=== PATIENT | male | born 1970 | race Caucasian/White ===

== ENCOUNTER → 2020-03-31 08:37 | Outpatient (CLI) | payer MEDICAID, SELFPAY ==
[2020-03-31 10:22] LABS: Coronavirus 19 IgG Antibody Negative (Negative); Coronavirus 19 IgM Antibody Negative (Negative)
== END ==
PROVIDERS: Visit Provider Surgery
DX: Z01.89 Encounter for other specified special examinations (principal); Z12.11 Encounter for screening for malignant neoplasm of colon; K62.89 Other specified diseases of anus and rectum; Z87.19 Personal history of other diseases of the digestive system
CPT/HCPCS: 36415; 86328

== ENCOUNTER 2020-04-01 09:49 | Day surgery (SDC) | payer MEDICAID, SELFPAY ==
[2020-04-01] VITALS (11 sets, daily range): BP systolic 122–154; BP diastolic 62–84; PULSE 50–91; RESP 18; TEMP 36.7–37.4; O2SAT 97–100; BMI 21.0
--- NOTE | 2020-04-01 09:36 | P.PN_ITS ---
[facility] Anesthesia Checklist - Structural Data Admitted From: Home Planned Operative Procedure/s: colonoscopy Consent for Planned Operative Procedure(s) Verified: Yes - Airway Assessment C-Spine Mobility Assessed: Yes Dentition: Poor Dentition - Neurological Assessment Level of Consciousness: Awake, Alert, Appropriate - Anesthesia Plan Anesthesia Risk discussed: Yes Anesthesia Plan: Verified ASA Class: III Anesthesia Type: MAC [facility] History I have reviewed the patient's past medical history: Yes Medical History: Denies:: Cancer, Diabetes Mellitus Type 1, Diabetes Mellitus Type 2, Internal Pacemaker, MRSA *Have you ever received a pneumonia vaccine?: No *Have you received a flu vaccine this season?: No Anesthesia experience/problems:: none Other Surgeries: Yes: Colonoscopy. No: Pacemaker Amputation: No Fractures: No - *Social History Last grade of school completed: 9th or 10th Smoking Status: Never smoker Alcohol Intake: never Substance Use Type: marijuana Last Used Substance: unknown *Occupational Status:: employed Housing: apartment Household Members: significant other *Travel in the last 8 weeks: None Family Hx:: No significant family history
--- NOTE | 2020-04-01 10:35 | P.PN_ITS ---
[facility] Anesthesia Checklist - Structural Data Admitted From: Home Planned Operative Procedure/s: colonoscopy Consent for Planned Operative Procedure(s) Verified: Yes - Airway Assessment C-Spine Mobility Assessed: Yes TMJ Mobility Assessed: Yes Dentition: Good Dentition - Neurological Assessment Level of Consciousness: Awake, Alert, Appropriate - Anesthesia Plan Anesthesia Risk discussed: Yes Anesthesia Plan: Verified ASA Class: II Anesthesia Type: MAC [facility] History I have reviewed the patient's past medical history: Yes Medical History: Denies:: Cancer, Diabetes Mellitus Type 1, Diabetes Mellitus Type 2, Internal Pacemaker, MRSA, Seizures *Have you ever received a pneumonia vaccine?: No *Have you received a flu vaccine this season?: No Anesthesia experience/problems:: none Other Surgeries: Yes: Colonoscopy. No: Pacemaker Amputation: No Fractures: No - *Social History Last grade of school completed: 9th or 10th Smoking Status: Never smoker Alcohol Intake: never Substance Use Type: marijuana, painkillers Last Used Substance: unknown *Occupational Status:: other Housing: apartment Household Members: significant other *Travel in the last 8 weeks: None Family Hx:: No significant family history
--- NOTE | 2020-04-01 10:51 | P.PCN_ITS ---
- Procedure: Date: 04/01/20 Patient Date of :: 1970 Procedure Performed:: Colonoscopy with polypectomy Indications:: Perianal pain History of posterior perianal fissure Screening Performing Provider:: Meek Pal MD Referring Provider:: . Sedation:: Monitored anesthesia care Procedure:: After informed consent was obtained the patient was taken to the endoscopy suite. Sedation ensued after the patient was transferred to the left lateral decubitus position. Pulse, blood pressure, and oxygen saturation were monitored throughout the procedure. Digital rectal exam revealed no significant abnormality. The colonoscope was placed in position. The entire colon was evaluated. The colonoscope was carefully removed and the patient was campoverde sferred to recovery in stable condition. Please see findings and specimens below for detail. Findings:: Moderate prep with large volume fluid/feculent material Fairly significant spasticity Minimal thickening along posterior anal margin with no acute fissure or sentinel tag Minimal anal stenosis Polyps (see specimens) Specimens:: Complex lobulated sessile right colon polyp (snare) Polyp at 30 cm Lobulated polyp at 30 cm (snare) Recommendations:: Timing of repeat colonoscopy is pending pathology will likely be between 2-3 years secondary to size/nature of polyps, moderate bowel prep, and spasticity. Complications:: No immediate Estimated blood obtained (mL): 1
--- NOTE | 2020-04-01 13:30 | XR_ITS ---
PROCEDURE: XR ACUTE ABDOMEN SERIES CLINICAL INDICATION: pain s/p colonoscopy COMPARISON: No exams were available for comparison FINDINGS: Frontal view of the chest shows no acute finding. Upright and supine views of the abdomen demonstrates a nonspecific bowel gas pattern. There are gas-filled loops of small and large bowel not uncommon status post colonoscopy. No evidence of free air. No abnormal calcifications. Degenerative changes are present in the lumbar spine. Faint calcification noted along the upper pole of the right kidney suggesting nephrolithiasis. Other findings:None. IMPRESSION: No acute finding. No evidence free air. Possible right nephrolithiasis. Dictated by: Domingo Ybarra MD 04/01/2020 13:47 Domingo Ybarra MD in [place] 04/01/2020 13:47
== END 2020-04-01 14:02 | disposition home or self-care (01) ==
PROVIDERS: Visit Provider Surgery
PROC: 0DJD8ZZ Inspection of Lower Intestinal Tract, Via Natural or Artificial Opening Endoscopic (ICD-10-PCS; CPT 45385; principal; 2020-04-01 10:00)
DX: Z12.11 Encounter for screening for malignant neoplasm of colon (principal); K58.9 Irritable bowel syndrome, unspecified; K63.5 Polyp of colon; K62.4 Stenosis of anus and rectum
CPT/HCPCS: 45385; 74021

== ENCOUNTER 2020-04-06 08:53 | Outpatient (RCR) | payer MEDICAID, SELFPAY | END 2020-05-06 15:39 | disposition home or self-care (01) | LOC: PT.CARL 08:53 | PROVIDERS: Visit Provider Nurse Practitioner Family | DX: M25.512 Pain in left shoulder (principal); M50.10 Cervical disc disorder with radiculopathy, unspecified cervical region | CPT/HCPCS: 97163 ==

== ENCOUNTER → 2020-04-09 15:32 | Outpatient (CLI) | payer MEDICAID, SELFPAY ==
--- NOTE | 2020-04-09 | MR_ITS ---
PROCEDURE: MR CERVICAL SPINE WO CON CLINICAL INDICATION: NECK PAIN PT C/O CHRONIC NECK AND LEFT ARM PAIN. HAS HX OF TRAUMA YEARS AGO. COMPARISON: No exams were available for comparison TECHNIQUE: Standard multiplanar multiecho sequences are performed without contrast. 3-D MIP and myelographic images are also rendered and reviewed FINDINGS: There is normal alignment. The craniocervical junction has an unremarkable appearance. C2-C3: Unremarkable. C3-C4: There is a small right foraminal disc osteophyte complex causing mild right-sided foraminal narrowing. C4-C5: Unremarkable. C5-C6: Unremarkable. C6-C7: Mild degenerative disc disease with minimal bulging disc. There is mild left-sided uncovertebral hypertrophy with minimal disc osteophyte complex causing mild left-sided foraminal narrowing. No canal stenosis or extruded herniated disc. IMPRESSION: Mild degenerative changes with small right foraminal disc osteophyte complex at C3-C4 and on the left at C6-C7 with mild foraminal narrowing at these levels. No extruded herniated disc or canal stenosis Dictated by: Domingo Ybarra MD 04/10/2020 11:26 Domingo Ybarra MD in [place] 04/10/2020 11:26
== END ==
PROVIDERS: Visit Provider Nurse Practitioner Family
DX: M25.512 Pain in left shoulder (principal); M50.10 Cervical disc disorder with radiculopathy, unspecified cervical region
CPT/HCPCS: 72141; 76376

== ENCOUNTER 2021-05-13 10:43 | Emergency (ER) | payer MEDICAID, SELFPAY ==
--- NOTE | 2021-05-13 11:40 | HMH.EDUTC ---
[facility] [place] Disposition Clinical Impression: Abdominal cramping, Nausea, Weight loss Disposition: Home, Self-Care Condition on Discharge: Good Instructions: DI for Nausea -- Adult, DI for Weight Loss Additional Instructions: Drink plenty of fluids. Take tylenol or ibuprofen for pain or fever. Take the medications as directed. Follow up with your regular doctor. GO TO THE ER FOR ANY WORSENING SYMPTOMS The promethazine will make you drowsy, so don't drive or operate heavy machinery after taking it. You need to get a primary care physician. We will give you a list of providers that are taking new patients. Please select one and call and get an appointment. Prescriptions: Promethazine HCl [Phenergan 25mg tab] 25 mg PO Q6H PRN #20 tab PRN Reason: Nausea And Vomiting Transmission Status: Received by [facility] Referrals: Provider,Referral, [Primary Care Provider] - Time of Disposition: 12:03 Medical Decision Making - Medical Records Medical records reviewed: No: I reviewed the patient's medical records. - Otilio Inquiry Pt receiving controlled substance: No Vital Signs: 05/13/21 11:50 05/13/21 12:22 Temperature 98.4 F 98.4 F Temperature Source Oral Oral Pulse Rate 92 H Pulse Rate [Left Radial] 92 H Respiratory Rate 18 18 Blood Pressure 124/86 Blood Pressure [Right Arm] 124/86 Blood Pressure Mean [Right Arm] 98 Blood Pressure Source [Right Arm] Automatic Cuff Blood Pressure Position [Right Arm] Sitting 02 Sat by Pulse Oximetry 100 Oxygen Delivery Method Room Air Room Air - Lab Data Lab results reviewed: Yes: I reviewed the patient's lab results. [facility] [place] HPI - General Stated complaint: body aches Time Seen by Provider: 05/13/21 11:40 - History of Present Illness Provider Complaint: He states that he has a lot of gi complaints. He has issues with gas pain and bloating. He has had this issue for over a year now. He had a colonoscopy done last year by Dr. Pal here. He states that the colonoscopy showed some polyps, but nothing else. He also has a history of weight loss. He states that over the past 1 year he has lost about 25 pounds. He states that he never has an appetite. He also has frequent issues with nausea. He denies any vomiting or diarrhea. - Related Data Home Medications Medication Instructions Recorded Confirmed Meloxicam 15 mg PO BID 03/30/20 04/07/20 Previous Rx's Medication Instructions Recorded Promethazine HCl [Phenergan 25mg 25 mg PO Q6H PRN #20 tab 05/13/21 tab] Allergies Allergy/AdvReac Type Severity Reaction Status Date / Time No Known Allergies Allergy Verified 04/07/20 13:55 [facility] History - Hepatitis A Screen Attestation statement:: This patient has been screened for Hepatitis A risk factors. I have reviewed the patient's past medical history: Yes Medical History: Denies:: Cancer, Diabetes Mellitus Type 1, Diabetes Mellitus Type 2, Internal Pacemaker, MRSA, Seizures Other Surgeries: Yes: Colonoscopy. No: Pacemaker Amputation: No Fractures: No Comment: Fissure - Social History Smoking Status: Never smoker Alcohol Intake: never Substance Use Type: marijuana, painkillers Occupational Status: other Housing: apartment Household Members: significant other Family Hx:: No significant family history ROS Obtained: Yes All systems reviewed & no additional complaints - Constitutional Constitutional: Denies chills, Denies fever(s), Reports poor appetite, Reports malaise - ENT Ears, Nose, Mouth, and Throat: Denies dizziness, Denies otalgia, Denies sore throat - Cardiovascular Cardiovascular: Denies chest pain - Respiratory Respiratory: Denies chest congestion, Denies cough, Denies dyspnea, Denies stridor, Denies wheezing - Gastrointestinal Gastrointestingal: Reports: nausea. Denies: abdominal pain, diarrhea, vomiting - Genitourinary Male Genitourinary: Denies difficulty urinating, Denies flan
[2021-05-13 11:50] VITALS: BP 124/86; PULSE 92; RESP 18; TEMP 36.9; O2SAT 100; BMI 21.2
[2021-05-13 12:22] VITALS: BP 124/86; PULSE 92; RESP 18; TEMP 36.9; O2SAT 100
== END 2021-05-13 12:23 | disposition home or self-care (01) ==
LOC: ER 10:56 → UTC 10:57
PROVIDERS: Emergency Provider Nurse Practitioner Family
DX: R10.30 Lower abdominal pain, unspecified (principal)
CPT/HCPCS: 99202; G0463

== ENCOUNTER → 2021-05-24 19:00 | Outpatient (CLI) | payer MEDICAID, SELFPAY ==
[2021-05-24 19:26] LABS: Basophils # 0.1 K/mm3 (0-0.2); Basophils % 0.8 % (0.1-2.0); Eosinophils # 0.1 K/mm3 (0.0-0.4); Eosinophils % 1.6 % (0.1-12.0); Hematocrit 39.2 % (42.0-52.0); Hemoglobin 13.5 g/dL (14.1-18.0); Lymphocytes # 2.4 K/mm3 (0.7-4.5); Lymphocytes % 37.4 % (10-50); Mean Corpuscular HGB Conc 34.3 g/dL (31.8-35.4); Mean Corpuscular Hemoglobin 30.7 pg (27.0-31.2); Mean Corpuscular Volume 89.5 fl (80-94); Monocytes # 0.4 K/mm3 (0.1-1.0); Monocytes % 6.7 % (1.7-9.3); Neutrophils # 3.5 K/mm3 (1.8-7.8); Neutrophils % 53.5 % (37.0-80.0); Platelet Count 312 K/mm3 (142-424); Red Blood Count 4.38 M/mm3 (4.60-6.20); Red Cell Distribution Width 12.4 % (11.5-17.5); White Blood Count 6.5 K/mm3 (4.8-10.8)
[2021-05-24 20:42] LABS: Alanine Aminotransferase 11 U/L (12-78); Albumin Level 4.5 g/dl (3.5-5.0); Albumin/Globulin Ratio 1.7 (1.1-1.8); Alkaline Phosphatase 69 U/L (38-126); Amylase 54 U/L (30-110); Anion Gap 12.1 mEq/L (5-15); Aspartate Amino Transferase 32 U/L (17-59); Bilirubin,Total 0.5 mg/dl (0.2-1.3); Blood Urea Nitrogen 14 mg/dl (9-20); Calcium 9.5 mg/dl (8.4-10.2); Carbon Dioxide 29 mmol/L (22.0-30.0); Chloride 100 mmol/L (98-107); Cholesterol 138 mg/dl (140-200); Estimated Glomerular Filt Rate 78 ml/min (>60); GFR (African American) 95 ML/MIN (>60); Globulin 2.6 g/dL (1.3-3.2); Glucose 76 mg/dl (74-100); HDL Cholesterol 46 mg/dl (40-60); Lipase 44 U/L (23-300); Potassium 4.1 mmoL/L (3.5-5.1); Sodium 137 mmol/L (136-145); Total Protein,Serum 7.1 g/dl (6.3-8.2); Triglycerides 64 mg/dl (30-150); VLDL Cholesterol 13 mg/dL (0-40)
[2021-05-24 20:53] LABS: Direct LDL Cholesterol 79.37 mg/dL (100-129)
[2021-05-24 21:10] LABS: Prostate Specific Ag Screen 0.9 ng/ml (0.0-4.0)
== END ==
PROVIDERS: Visit Provider Family Medicine
DX: Z00.00 Encounter for general adult medical examination without abnormal findings (principal)
CPT/HCPCS: 80053; 80061; 82150; 83690; 85025; G0103

== ENCOUNTER → 2021-06-07 10:06 | Outpatient (CLI) | payer MEDICAID, SELFPAY ==
--- NOTE | 2021-06-07 10:09 | FL_ITS ---
PROCEDURE: FL UPPER GI SMALL BOWEL CLINICAL INDICATION: dysphagia, bloating COMPARISON: No exams were available for comparison FINDINGS: Fluoroscopy time: 3.2 minutes The stomach and duodenal bulb have an unremarkable appearance. No ulcer or mass is evident. Esophagus has an unremarkable appearance. No hernia evident. No evidence of small-bowel obstruction. No obvious mass. No mucosal of abnormalities apparent. There was fairly rapid transit of contrast through the small bowel to the large bowel. IMPRESSION: Fairly rapid transit of contrast through the small bowel otherwise negative upper GI and small-bowel follow-through Dictated by: Domingo Ybarra MD 06/07/2021 17:14 Domingo Ybarra MD in [place] 06/07/2021 17:14
== END ==
PROVIDERS: PCP Family Medicine; Visit Provider Surgery
DX: R13.10 Dysphagia, unspecified (principal); R11.0 Nausea
CPT/HCPCS: 74246; 74248

== ENCOUNTER → 2021-06-08 08:53 | Outpatient (CLI) | payer MEDICAID, SELFPAY ==
--- NOTE | 2021-06-08 08:55 | FL_ITS ---
PROCEDURE: FL BARIUM SWALLOW CLINICAL INDICATION: dysphagia, bloating COMPARISON: No exams were available for comparison TECHNIQUE: In the upright position the patient was observed to swallow barium in both the AP and lateral view. The cervical esophagus was examined under fluoroscopy with images obtained. The patient was then placed prone in the right anterior oblique position and was observed to swallow barium with Valsalva technique . FLUOROSCOPY TIME: 48 seconds FINDINGS: There was no evidence of aspiration. There was normal peristalsis. No filling defects or mucosal abnormalities. No masses or strictures. No hiatal hernia IMPRESSION: Negative barium swallow. Dictated by: Domingo Ybarra MD 06/08/2021 13:31 Domingo Ybarra MD in [facility] 06/08/2021 13:31
== END ==
PROVIDERS: PCP Family Medicine; Visit Provider Surgery
DX: R13.10 Dysphagia, unspecified (principal); R11.0 Nausea
CPT/HCPCS: 74220

== ENCOUNTER → 2021-06-13 14:40 | Outpatient (CLI) | payer MEDICAID, SELFPAY ==
--- NOTE | 2021-06-13 14:42 | CT_ITS ---
PROCEDURE: CT ABDOMEN PELVIS WO CON CLINICAL INDICATION: lower abdomin pain with weight loss COMPARISON: No exams were available for comparison TECHNIQUE: Axial images obtained with sagittal and coronal reformats. All CT scans at the facility use one or more dose reduction, viz: automated exposure control, ma/kV adjustment per patient size (including targeted exams where dose is matched to indication, i.e. head), or iterative reconstruction technique. FINDINGS: LOWER THORAX: No acute finding ABDOMEN & PELVIS: The liver, gallbladder, spleen, adrenal glands, pancreas, and kidneys have an unremarkable appearance. No renal or ureteral calculi. No hydronephrosis. Bowel gas pattern is nonspecific. No evidence of appendicitis. Evidence of diverticulitis. Nondistended fluid-filled small bowel loops are present in the pelvis. No intestinal obstruction or free air. Multiple unopacified bowel loops in the abdomen or pelvis which could obscure or mimic pathology. If symptoms persist, consider repeat exam with IV and oral contrast.. Small hyperdensity noted in the cecal region and may be due to ingested contents. Degenerative changes are present in the lumbar spine with severe degenerative disc disease at L4-5 and moderate to severe degenerative disc disease at L2-L3 and L3-L4. Sclerotic focus is present in the L5 vertebral body. Degenerative changes lower thoracic spine. Small sclerotic focus of the right femoral head. The sclerotic foci may be due to bone islands. IMPRESSION: No definite acute finding. Nondistended fluid-filled loops of small bowel are present which are nonspecific Multiple unopacified bowel loops in the abdomen or pelvis which could obscure or mimic pathology. If symptoms persist, consider repeat exam with IV and oral contrast. Dictated by: Domingo Ybarra MD 06/14/2021 15:10 Domingo Ybarra MD in [facility] 06/14/2021 15:10
== END ==
PROVIDERS: PCP Family Medicine; Visit Provider Family Medicine
DX: R10.30 Lower abdominal pain, unspecified (principal); R63.4 Abnormal weight loss
CPT/HCPCS: 74176

== ENCOUNTER → 2021-09-22 14:37 | Outpatient (CLI) | payer MEDICAID, SELFPAY ==
--- NOTE | 2021-09-22 14:42 | MR_ITS ---
FINAL REPORT CLINICAL HISTORY: neck pain. left shoulder pain and neck pain x several years no trauma COMPARISON: 04/09/2020 FINDINGS: Multiplanar MR imaging of the cervical spine was performed without contrast. On the sagittal T2-weighted images, disc degeneration is seen at multiple levels. There is no evidence of fracture. The vertebral alignment is normal. The cervical spinal cord has an unremarkable appearance without evidence of mass, edema or syrinx. No significant canal stenosis is identified. The cervicomedullary junction is normal. C2-3: There is no significant canal stenosis or neural foraminal narrowing. C3-4: Uncovertebral osteophytes are present with severe right and moderate left neural foraminal narrowing. Findings are stable since previous. C4-5: There is no significant canal stenosis or neural foraminal narrowing. C5-6: An annular bulge is present with mild right and moderate left neural foraminal narrowing. C6-7: An annular bulge and uncovertebral osteophytes are present. There is severe bilateral neural foraminal narrowing. Neural foraminal narrowing has progressed on the right. C7-T1: There is no significant canal stenosis or neural foraminal narrowing. IMPRESSION: Multilevel degenerative disc disease and spondylosis. Reviewed, Interpreted and Dictated by Dez Rodriguez III, MD Transcribed by Niki Hinton Authenticated by Dez Rodriguez III, MD on 09/23/2021 08:29:38 AM [facility]
== END ==
PROVIDERS: PCP Emergency Medicine; Visit Provider Emergency Medicine
DX: M54.2 Cervicalgia (principal); M54.16 Radiculopathy, lumbar region
CPT/HCPCS: 72141; 76376

== ENCOUNTER → 2021-09-26 15:47 | Outpatient (CLI) | payer MEDICAID, SELFPAY ==
[2021-09-26 13:54] LABS: Barbiturates Screen,Urine Negative ng/ml (<200)
[2021-09-26 13:55] LABS: Amphetamine/Metha Screen,Urine Negative ng/ml (<1000)
[2021-09-26 13:56] LABS: Benzodiazepines Screen,Urine Negative ng/ml (<200)
[2021-09-26 13:57] LABS: Cannabinoid Screen,Urine Positive ng/ml (<50); Cocaine Screen,Urine Negative ng/ml (<300)
[2021-09-26 13:58] LABS: Methadone Screen,Urine Negative ng/ml (<300); Opiate Screen,Urine Positive ng/ml (<300)
[2021-09-26 13:59] LABS: Phencyclidine Screen,Urine Negative ng/ml (<25)
== END ==
PROVIDERS: Visit Provider Emergency Medicine
DX: M54.9 Dorsalgia, unspecified (principal)
CPT/HCPCS: 80305

== ENCOUNTER 2021-10-01 13:44 | Emergency (ER) | payer MEDICAID, SELFPAY ==
[2021-10-01 13:44] VITALS: BP 121/72; PULSE 74; RESP 16; TEMP 37.2; O2SAT 98; BMI 23.1
[2021-10-01 14:15] VITALS: BP 131/69; PULSE 75; RESP 20; O2SAT 96
--- NOTE | 2021-10-01 14:15 | HMH.EDSKAF ---
ED Disposition Clinical Impression: Insect bite Qualifiers: Encounter type: initial encounter Site of insect bite: other part of neck Qualified Code(s): S10.86XA - Insect bite of other specified part of neck, initial encounter; W57.XXXA - Bitten or stung by nonvenomous insect and other nonvenomous arthropods, initial encounter Disposition: Home, Self-Care Condition on Discharge: Fair Instructions: How to Care for an Insect Bite or Sting Additional Instructions: Turn to the emergency department if you worsen in any way. You may take [id number] ibuprofen and/or Tylenol for the pain. Referrals: Mark Anthony Reyes MD [Primary Care Provider] - - Critical Care Critical Care Time: No Attestation: On 10/01/21, the high probability of a clinically significant, sudden or life threatening deterioration of the following system(s) required my full and direct attention, intervention and personal management. The time I documented below is in addition to time spent performing reported procedures but includes the following listed in this critical care notation. Medical Decision Making - Medical Records Medical records reviewed: Yes: I reviewed the patient's medical records. - Otilio Inquiry Pt receiving controlled substance: No Vital Signs: 10/01/21 13:44 Temperature 98.9 F Temperature Source Oral Pulse Rate [Right] 74 Respiratory Rate 16 Blood Pressure [Right Arm] 121/72 Blood Pressure Mean [Right Arm] 88 Blood Pressure Source [Right Arm] Automatic Cuff Blood Pressure Position [Right Arm] Sitting 02 Sat by Pulse Oximetry 98 Oxygen Delivery Method Room Air Medical Decision Narrative: Patient presents to the emergency department complaining of redness and tenderness at the base of his left neck. This occurred few days ago. He states that he does improve. On examination there is no fluctuance. This is not indicative of an abscess. The fact that the symptoms are improving makes me believe that this may have been an arthropod sting or bite. The patient will be discharged without any further work-up at this time. I advised the patient to keep track of the size of the induration and redness. I also advised him to return to the emergency department if the symptoms start worsening. Skin/Abscess/FB HPI - General Chief complaint: Skin/Abscess/Foreign Body Stated complaint: knot on L side of neck Time Seen by Provider: 10/01/21 14:15 Mode of Arrival: Ambulatory Limitations: No Limitations Description of Symptoms (Recalled from ER Triage Doc. by RN): pt advises on Sunday the area on his left shoulder around the base of his neck became tender and swollen. Pt has rachele, hard area on the left shoulder at the base of the neck. Unknown if he was bit by something or what is going on with it. - History of Present Illness HPI narrative: The patient presents to the emergency department complaining of a red, painful, indurated area at the base of his left neck. Dates that this started a day and a half ago when he was putting wood in his stove. States that the size of the swelling has decreased since yesterday. He denies any fevers. - Related Data Previous Rx's Medication Instructions Recorded gabapentin 100 mg capsule 100 mg PO TID #90 cap 09/26/21 oxycodone-acetaminophen 7.5 mg-325 1 tab PO QID #120 tab 09/26/21 mg tablet Allergies Allergy/AdvReac Type Severity Reaction Status Date / Time No Known Allergies Allergy Verified 09/26/21 09:52 [facility] History - Hepatitis A Screen Drug use history?: No High risk sexual behaviors?: No History of sexually transmitted infection?: No Currently employed?: No Childcare worker?: No Do you have indoor plumbing?: Yes Do you have electricity?: Yes Attestation statement:: This patient has been screened for Hepatitis A risk factors. Medical History: Reports:: Anxiety Denies:: Cancer, Diabetes Mellitus Type 1, Diabetes Mellitus Type 2, Internal Pacemaker, M
[2021-10-01 14:41] VITALS: BP 124/89; PULSE 70; RESP 16; TEMP 37.2; O2SAT 98
== END 2021-10-01 14:43 | disposition home or self-care (01) ==
PROVIDERS: Emergency Provider Emergency Medicine; PCP Emergency Medicine
DX: S10.86XA Insect bite of other specified part of neck, initial encounter (principal); F41.9 Anxiety disorder, unspecified; Z79.899 Other long term (current) drug therapy; W57.XXXA Bitten or stung by nonvenomous insect and other nonvenomous arthropods, initial encounter
CPT/HCPCS: 99282

== ENCOUNTER 2021-10-02 15:58 | Emergency (ER) | payer MEDICAID, SELFPAY ==
[2021-10-02 16:07] VITALS: PULSE 87; RESP 16; O2SAT 98; BMI 21.1
--- NOTE | 2021-10-02 16:34 | HMH.EDUTC ---
[facility] [place] Disposition Clinical Impression: Cutaneous abscess of back excluding buttocks Disposition: Home, Self-Care Condition on Discharge: Good Instructions: Boil Additional Instructions: Keep the wounds clean and dry. Follow up with your regular doctor. Take the antibiotics as directed and apply the topical antibiotics as directed. GO TO THE ER FOR ANY WORSENING SYMPTOMS Try to keep the packing in place when you have to change the dressing. If it falls out, it is ok. You need to be rechecked in 3 days to remove the packing and to reassess the wound. It would be good for you to go see Dr. Reyes tomorrow as you plan too. Referrals: Mark Anthony Reyes MD [Primary Care Provider] - Time of Disposition: 18:30 Medical Decision Making - Medical Records Medical records reviewed: No: I reviewed the patient's medical records. - Otilio Inquiry Pt receiving controlled substance: No Vital Signs: 10/02/21 16:07 10/02/21 18:53 Temperature 98.8 F Pulse Rate 93 H Pulse Rate [Right] 87 Respiratory Rate 16 16 Blood Pressure 136/99 H 02 Sat by Pulse Oximetry 98 Oxygen Delivery Method Room Air Orders (Tests/Meds): ED MEDICATIONS Discontinued Medications Generic Name Dose Route Start Last Admin Trade Name Freq PRN Reason Stop Dose Admin Ceftriaxone Sodium 1 gm 10/02/21 16:35 10/02/21 16:46 Ceftriaxone 1gm Vial IM 10/02/21 16:36 1 gm ONCE ONE Administration Ketorolac Tromethamine 60 mg 10/02/21 16:35 10/02/21 16:46 Ketorolac 60mg/2ml Vial IM 10/02/21 16:36 60 mg ONCE ONE Administration Ketorolac Tromethamine 60 mg 10/02/21 16:45 10/02/21 17:15 Ketorolac 60mg/2ml Vial IM 10/02/21 16:46 Not Given ONCE ONE Lidocaine HCl 0 ml 10/02/21 16:35 10/02/21 16:46 Lidocaine 1% 5ml Pf Vial IM 10/02/21 16:36 2 ml ONCE ONE Administration ORDERS Category Date Time Status Wound Culture and Gram Stain Stat Micro 10/02/21 19:30 Results [facility] [place] HPI - General Stated complaint: painful spot on neck Time Seen by Provider: 10/02/21 16:35 Mode of Arrival: Ambulatory Source of Information: Patient Limitations: No Limitations Description of Symptoms (Recalled from Triage Doc. by RN): pt was seen yesterday for a lump on his left shoulder that ER MD did not feel needed to be opened. Pt returned today c/o increased pain. Area appears to be slightly redder, but is still hard to the touch. No obvious changes from yesterday - History of Present Illness Provider Complaint: He states that he has an infected place on his left upper back. - Related Data Home Medications Medication Instructions Recorded Confirmed Gabapentin [Gabapentin 100mg Cap] 100 mg PO TID 10/04/21 10/04/21 Mupirocin [Bactroban 2% Ointment 1 applicatio TP TID 10/04/21 10/04/21 22gm tube] Oxycodone HCl/Acetaminophen 1 tab PO QID 10/04/21 10/04/21 [Oxycodone-Acetaminophn 7.5-325] Sulfamethoxazole/Trimethoprim 1 each PO BID 10/04/21 10/04/21 [Bactrim DS tablet] cephALEXin [cephALEXin 500mg 500 mg PO Q6H 10/04/21 10/04/21 capsule] Allergies Allergy/AdvReac Type Severity Reaction Status Date / Time No Known Allergies Allergy Verified 10/04/21 13:19 [facility] History - Hepatitis A Screen Attestation statement:: This patient has been screened for Hepatitis A risk factors. I have reviewed the patient's past medical history: Yes Medical History: Reports:: Anxiety Denies:: Cancer, Diabetes Mellitus Type 1, Diabetes Mellitus Type 2, Internal Pacemaker, MRSA, Seizures Other Surgeries: Yes: Colonoscopy, Other (pollops removed ). No: Pacemaker Amputation: No Fractures: No Comment: Fissure - Social History Smoking Status: Never smoker Alcohol Intake: never Substance Use Type: marijuana, painkillers Occupational Status: other Housing: apartment Household Members: significant other - Psychiatric History Pschychiatric History:: Reports:: Anxiety Family Hx:: No signif
[2021-10-02 18:53] VITALS: BP 136/99; PULSE 93; RESP 16; TEMP 37.1
== END 2021-10-02 18:58 | disposition home or self-care (01) ==
PROVIDERS: Emergency Provider Nurse Practitioner Family; PCP Emergency Medicine
DX: L02.212 Cutaneous abscess of back [any part, except buttock and flank] (principal); L02.12 Furuncle of neck; R22.32 Localized swelling, mass and lump, left upper limb; F41.9 Anxiety disorder, unspecified
CPT/HCPCS: 10060; 87070; 87077; 87186; 87205; 99213; G0463; J0696

== ENCOUNTER → 2021-10-04 14:02 | Outpatient (POV) | payer MEDICAID, SELFPAY ==
--- NOTE | 2021-10-04 14:26 | P.CONS_ITS ---
HPI - Data of Consult Patient: new to practice Consult date: 10/04/21 Requesting Physician: Alexander Mccarthy CRNA - Consult Narrative Reason for consult: Neck pain with cervical radiculopathy. History of present illness: Mr. Jin is a 51 year old male CC: Alexander Mccarthy CRNA [facility] History I have reviewed the patient's past medical history: Yes Medical History: Reports:: Anxiety Denies:: Cancer, Diabetes Mellitus Type 1, Diabetes Mellitus Type 2, Internal Pacemaker, MRSA, Seizures *Have you ever received a pneumonia vaccine?: No *Have you received a flu vaccine this season?: No Other Surgeries: Yes: Colonoscopy, Other (pollops removed ). No: Pacemaker Amputation: No Fractures: No - *Social History Smoking Status: Never smoker Alcohol Intake: never Substance Use Type: marijuana, painkillers *Occupational Status:: other Housing: apartment Household Members: significant other - Psychiatric History Pschychiatric History:: Reports:: Anxiety Family Hx:: No significant family history Review of Systems - Review of Systems Review of systems:: pertinent systems reviewed and negative unless documented below Meds Home Medications Medication Instructions Recorded Confirmed Type Gabapentin [Gabapentin 100mg Cap] 100 mg PO TID 10/04/21 10/12/21 History Mupirocin [Bactroban 2% Ointment 1 applicatio TP TID 10/04/21 10/12/21 History 22gm tube] Oxycodone HCl/Acetaminophen 1 tab PO QID 10/04/21 10/12/21 History [Oxycodone-Acetaminophn 7.5-325] Sulfamethoxazole/Trimethoprim 1 each PO BID 10/04/21 10/12/21 History [Bactrim DS tablet] cephALEXin [cephALEXin 500mg 500 mg PO Q6H 10/04/21 10/12/21 History capsule] Allergies Allergy/AdvReac Type Severity Reaction Status Date / Time No Known Allergies Allergy Verified 10/12/21 13:25
[2021-10-04 14:29] VITALS: BP 130/80; PULSE 78; RESP 18; TEMP 37.1; O2SAT 95; BMI 21.8
--- NOTE | 2021-10-04 14:30 | HMH.PMCON ---
Assessment and Plan (1) Degenerative joint disease of cervical spine Status: Chronic Qualifiers: Spinal osteoarthritis complication: with radiculopathy Qualified Code(s): M47.22 - Other spondylosis with radiculopathy, cervical region Category: Medical Code(s): M47.812 - Spondylosis without myelopathy or radiculopathy, cervical region (2) Cervical radiculopathy due to degenerative joint disease of spine Status: Acute Category: Medical Code(s): M47.22 - Other spondylosis with radiculopathy, cervical region - Assessment and plan all Dx Assessment and Plan for all problems:: Chrystal in detail with the patient regarding his cervical neck pain as well as cervical radiculopathy symptoms into the bilateral arms. Left greater than right. Reviewed patient's MRI of the cervical spine with him in detail. Most likely bulge at C6-7 is given in the pain in his neck as well as shoulder radicular symptoms. Discussed cervical epidural steroid injection in detail with the patient. However, patient has a open cyst that is being treated by his primary care doctor at this time. It was lanced on Sunday last week. Continues to drain. He is currently on antibiotic therapy. He will follow-up in 1 month. If the cyst and antibiotics are finished we will proceed with cervical epidural steroid injection. HPI - Data of Consult Patient: new to practice Consult date: 10/04/21 Requesting Physician: Alexander Mccarthy CRNA - Consult Narrative Reason for consult: Neck pain with cervical radiculopathy symptoms. History of present illness: Mr. Jin is a 51 year old male CC: Alexander Mccarthy CRNA [facility] History I have reviewed the patient's past medical history: Yes Medical History: Reports:: Anxiety Denies:: Cancer, Diabetes Mellitus Type 1, Diabetes Mellitus Type 2, Internal Pacemaker, MRSA, Seizures *Have you ever received a pneumonia vaccine?: No *Have you received a flu vaccine this season?: No Other Surgeries: Yes: Colonoscopy, Other (pollops removed ). No: Pacemaker Amputation: No Fractures: No - *Social History Smoking Status: Never smoker Alcohol Intake: never Substance Use Type: marijuana, painkillers *Occupational Status:: other Housing: apartment Household Members: significant other *Travel in the last 8 weeks: None - Psychiatric History Pschychiatric History:: Reports:: Anxiety Family Hx:: No significant family history Review of Systems - Review of Systems Review of systems:: pertinent systems reviewed and negative unless documented below Meds Home Medications Medication Instructions Recorded Confirmed Type Gabapentin [Gabapentin 100mg Cap] 100 mg PO TID 10/04/21 10/04/21 History Mupirocin [Bactroban 2% Ointment 1 applicatio TP TID 10/04/21 10/04/21 History 22gm tube] Oxycodone HCl/Acetaminophen 1 tab PO QID 10/04/21 10/04/21 History [Oxycodone-Acetaminophn 7.5-325] Sulfamethoxazole/Trimethoprim 1 each PO BID 10/04/21 10/04/21 History [Bactrim DS tablet] cephALEXin [cephALEXin 500mg 500 mg PO Q6H 10/04/21 10/04/21 History capsule] Allergies Allergy/AdvReac Type Severity Reaction Status Date / Time No Known Allergies Allergy Verified 10/04/21 13:19 Opioid Risk Tool - Opioid Risk Tool-Male Family hx alcohol abuse: N Family hx illegal drugs: N Family hx rx drug abuse: N Personal hx alcohol abuse: N Personal hx illegal drugs: N Personal hx rx drug abuse: N Age: 45+ Hx of sexual abuse: N Mental health issues-ADD,OCD,Bipolar, etc: N Hx of depression: N Male Risk Score: 0
== END ==
PROVIDERS: Visit Provider Nurse Anesthetist, Certified Registered
DX: M47.22 Other spondylosis with radiculopathy, cervical region (principal)
CPT/HCPCS: 99202; G0463

== ENCOUNTER → 2021-10-05 14:09 | Outpatient (CLI) | payer MEDICAID, SELFPAY ==
[2021-10-05 14:15] LABS: MANUAL DIFFERENTIAL MANUAL DIFFERENTIAL (MANUAL DIFF)
[2021-10-05 14:26] LABS: Basophils # 0.1 K/mm3 (0-0.2); Basophils % 1.9 % (0.1-2.0); Eosinophils # 0.2 K/mm3 (0.0-0.4); Eosinophils % 3.1 % (0.1-12.0); Hematocrit 39.3 % (42.0-52.0); Hemoglobin 12.7 g/dL (14.1-18.0); Lymphocytes # 2.7 K/mm3 (0.7-4.5); Lymphocytes % 41.8 % (10-50); Mean Corpuscular HGB Conc 32.3 g/dL (31.8-35.4); Mean Corpuscular Hemoglobin 30.5 pg (27.0-31.2); Mean Corpuscular Volume 94.4 fl (80-94); Monocytes # 0.4 K/mm3 (0.1-1.0); Monocytes % 6.7 % (1.7-9.3); Neutrophils % 46.5 % (37.0-80.0); Platelet Count 318 K/mm3 (142-424); Red Blood Count 4.16 M/mm3 (4.60-6.20); Red Cell Distribution Width 12.4 % (11.5-17.5); White Blood Count 6.5 K/mm3 (4.8-10.8)
[2021-10-05 15:36] LABS: Chloride 104 mmol/L (98-107)
[2021-10-05 15:37] LABS: Potassium 4.3 mmoL/L (3.5-5.1); Sodium 139 mmol/L (136-145)
[2021-10-05 15:40] LABS: Anion Gap 10.3 mEq/L (5-15); Blood Urea Nitrogen 15 mg/dl (9-20); Calcium 8.2 mg/dl (8.4-10.2); Carbon Dioxide 29 mmol/L (22.0-30.0); Estimated Glomerular Filt Rate 70 ml/min (>60); GFR (African American) 85 ML/MIN (>60); Glucose 74 mg/dl (74-100)
[2021-10-05 17:41] LABS: Eosinophils % 1 % (0-3); Lymphocytes % 38 % (10-50); Monocytes % 5 % (2-9); Neutrophils % 56 % (42-76); RBC Morphology Normal; Total Cells Counted 100
[2021-10-05 17:42] LABS: Platelet Estimate Normal
== END ==
PROVIDERS: Visit Provider Surgery
DX: Z01.812 Encounter for preprocedural laboratory examination (principal); Z11.52 Encounter for screening for COVID-19; L02.212 Cutaneous abscess of back [any part, except buttock and flank]
CPT/HCPCS: 36415; 80048; 85007; 85014; 85018; 85048; 85049; C9803; U0003; U0005

== ENCOUNTER 2021-10-06 06:03 | Day surgery (SDC) | payer MEDICAID, SELFPAY ==
[2021-10-06] VITALS (10 sets, daily range): BP systolic 100–140; BP diastolic 69–94; PULSE 69–85; RESP 16–18; TEMP 36.4–36.7; O2SAT 98–100; BMI 21.8
--- NOTE | 2021-10-06 06:35 | ECG_ITS ---
APPROVED REPORT Exam: Resting ECG HR:70 bpm ECG Measurements Heart Rate 70 AXES MS 162 P 67 QRSd 86 QRS 75 QT 377 T 63 QTc 398 Conclusion SINUS RHYTHM NORMAL ECG UNCONFIRMED REPORT Electronically signed by : Jomar Zelaya MD 10/06/2021 17:41:19
--- NOTE | 2021-10-06 06:54 | P.PN_ITS ---
[facility] Anesthesia Checklist - Patient Identification Patient Identification: Arm Band - Structural Data Admitted From: Home Planned Operative Procedure/s: I & D back abscess Consent for Planned Operative Procedure(s) Verified: Yes - NPO Status Verified Time NPO: 00:00 - Additional verifications Anesthesia Reactions: No Hx Blood Transfusions: No Blood Transfusion Reaction: No - Airway Assessment C-Spine Mobility Assessed: Yes TMJ Mobility Assessed: Yes Dentition: Good Dentition - Neurological Assessment Level of Consciousness: Awake Hx Seizures: No Numbness or tingling in extremities: Yes - Anesthesia Plan Anesthesia Risk discussed: Yes Anesthesia Plan: Verified ASA Class: II Anesthesia Type: General [facility] History I have reviewed the patient's past medical history: Yes Medical History: Reports:: Anxiety Denies:: Cancer, Diabetes Mellitus Type 1, Diabetes Mellitus Type 2, Internal Pacemaker, MRSA, Seizures *Have you ever received a pneumonia vaccine?: No *Have you received a flu vaccine this season?: No Other Medical History: Reports: Other (Chronic pain). Denies: Blood Transfusion Reaction Anesthesia experience/problems:: None Other Surgeries: Yes: Colonoscopy, Other (pollops removed ). No: Pacemaker Amputation: No Fractures: No - *Social History Last grade of school completed: High school graduate Smoking Status: Never smoker Alcohol Intake: former Substance Use Type: marijuana Last Used Substance: days (ago) *Occupational Status:: unemployed Housing: house Household Members: significant other *Travel in the last 8 weeks: None - Psychiatric History Pschychiatric History:: Reports:: Anxiety Family Hx:: Diabetes
--- NOTE | 2021-10-06 07:14 | HMH.OPNOTE ---
Date of procedure: 10/06/21 Pre-op Diagnosis:: Abscessed left upper back/shoulder cyst Post-op Diagnosis:: Same Procedure performed:: Incision and drainage/debridement of left upper back/shoulder abscessed cyst Surgeon:: Meek Pal MD RESPIRATORY MEDICINE PHYSICIAN:: Chet Willis Anesthesia: LMA Estimated blood loss (mL): 5 Operative findings:: Complex microabscess collection Operative note:: After informed consent was obtained the patient was taken to the operating room and placed in the supine position. General anesthesia with laryngeal mask airway was achieved. His left upper back/shoulder was prepped and draped in sterile fashion after he was transferred to the right lateral decubitus position. Electrocautery was utilized to excise the central portion of the abscessed cysts. Multiple complex microabscesses noted. The central portion was debrided and the cavity was expanded circumferentially. The wound was packed open with gauze. Dressings were applied and the patient was transferred to recovery in stable condition after removal of his laryngeal mask airway. Condition: stable Disposition: PACU Specimens:: None Complications:: No immediate
--- NOTE | 2021-10-06 07:22 | P.PN_ITS ---
[facility] Anesthesia Record Part I Intake, IV Amount: 400 Estimated blood loss (mL): 5 Urine output (mL): 0 Blood Pressure: 100/69 SaO2: 100 Pulse Rate: 71 Respiratory Rate: 16 Temperature: 97.6 F Patient is:: Drowsy, Stable Stable to PACU at:: 07:20
--- NOTE | 2021-10-07 09:12 | HMH.ANESII ---
[facility] Anesthesia Record Part II Discharge Time: 07:50 Destination: Surgical Day Care (OP Surgery) PACU nurse assessment reviewed?: Yes Patient Condition:: Good Anesthesia Complications:: None Swallowing reflex intact?: Yes Cyanosis?: No Blood Pressure: 124/74 Pulse Rate: 73 Temperature: 97.5 F Mental Status: Alert & Oriented Pain level:: 2 Nausea and/or vomitting:: None Intake, IV Amount: 0
[2021-10-07 09:13] VITALS: BP 124/74; PULSE 73; TEMP 36.4
== END 2021-10-06 08:21 | disposition home or self-care (01) ==
LOC: OR 06:04
PROVIDERS: PCP Emergency Medicine; Visit Provider Surgery
PROC: (CPT 10061; principal; 2021-10-06 07:00)
DX: L02.212 Cutaneous abscess of back [any part, except buttock and flank] (principal); F41.9 Anxiety disorder, unspecified; G89.29 Other chronic pain; F12.90 Cannabis use, unspecified, uncomplicated; Z83.3 Family history of diabetes mellitus; Z79.899 Other long term (current) drug therapy
CPT/HCPCS: 10061; 93005; 96374; J2405

== ENCOUNTER → 2021-11-14 11:33 | Outpatient (CLI) | payer MEDICAID, SELFPAY ==
--- NOTE | 2021-11-14 11:44 | XR_ITS ---
FINAL REPORT CLINICAL HISTORY: NECK PAIN FINDINGS: Five views including flexion and extension of the cervical spine were obtained. There is no prior exam for comparison. There is no acute fracture or malalignment. Vertebral body height is preserved. There is mild degenerative disc disease most pronounced at C6-7. There is no change in alignment with flexion and extension. The precervical soft tissues are normal. IMPRESSION: Mild degenerative disc disease most pronounced at C6-7. No change in alignment with flexion and extension. Reviewed, Interpreted and Dictated by Meron Mcgarry MD Transcribed by Samira Cruz Authenticated by Meron Mcgarry MD on 11/14/2021 02:25:06 PM [facility]
--- NOTE | 2021-11-14 11:46 | XR_ITS ---
FINAL REPORT CLINICAL HISTORY: back pain FINDINGS: An AP view of the thoracic and lumbar spine were obtained. There is no prior exam for comparison. There is mild S-shaped scoliosis. Leftward curvature in the lower thoracic spine from T7-T11 measures 6 degrees. Compensatory rightward curvature measured from T12-L4 is 12 degrees. There is multilevel degenerative disc disease. Vertebral body height is preserved. Paraspinal soft tissues are normal. There is no acute abnormality. IMPRESSION: Mild S-shaped scoliosis as above. Reviewed, Interpreted and Dictated by Meron Mcgarry MD Transcribed by aSmira Cruz Authenticated by Meron Mcgarry MD on 11/14/2021 01:21:46 PM [facility]
== END ==
PROVIDERS: PCP Emergency Medicine; Visit Provider Clinical Nurse Specialist Family Health
DX: M54.2 Cervicalgia (principal)
CPT/HCPCS: 72052; 72081

== ENCOUNTER → 2021-11-18 15:57 | Outpatient (CLI) | payer MEDICAID, SELFPAY ==
[2021-11-18 14:31] LABS: Amphetamine/Metha Screen,Urine Negative ng/ml (<1000)
[2021-11-18 14:33] LABS: Barbiturates Screen,Urine Negative ng/ml (<200)
[2021-11-18 14:34] LABS: Benzodiazepines Screen,Urine Negative ng/ml (<200); Cannabinoid Screen,Urine Positive ng/ml (<50)
[2021-11-18 14:35] LABS: Cocaine Screen,Urine Negative ng/ml (<300)
[2021-11-18 14:36] LABS: Methadone Screen,Urine Negative ng/ml (<300)
[2021-11-18 14:37] LABS: Opiate Screen,Urine Negative ng/ml (<300); Phencyclidine Screen,Urine Negative ng/ml (<25)
== END ==
PROVIDERS: Visit Provider Emergency Medicine
DX: M50.30 Other cervical disc degeneration, unspecified cervical region (principal); Z79.899 Other long term (current) drug therapy
CPT/HCPCS: 80305

== ENCOUNTER 2021-12-16 14:23 | Outpatient (RCR) | payer MEDICAID, SELFPAY | END 2021-12-16 15:25 | disposition home or self-care (01) | LOC: OT 14:23 | PROVIDERS: Visit Provider Orthopaedic Surgery | DX: G56.03 Carpal tunnel syndrome, bilateral upper limbs (principal) | CPT/HCPCS: 97763 ==

== ENCOUNTER → 2022-03-17 13:55 | Outpatient (CLI) | payer MEDICAID, SELFPAY ==
[2022-03-17 13:47] LABS: Amphetamine/Metha Screen,Urine Negative ng/ml (<1000)
[2022-03-17 13:48] LABS: Barbiturates Screen,Urine Negative ng/ml (<200); Benzodiazepines Screen,Urine Negative ng/ml (<200)
[2022-03-17 13:49] LABS: Cannabinoid Screen,Urine Positive ng/ml (<50)
[2022-03-17 13:50] LABS: Cocaine Screen,Urine Negative ng/ml (<300); Methadone Screen,Urine Negative ng/ml (<300)
[2022-03-17 13:54] LABS: Opiate Screen,Urine Positive ng/ml (<300); Phencyclidine Screen,Urine Negative ng/ml (<25)
== END ==
PROVIDERS: PCP Emergency Medicine; Visit Provider Emergency Medicine
DX: Z79.899 Other long term (current) drug therapy (principal)
CPT/HCPCS: 80305

== ENCOUNTER → 2022-04-10 11:42 | Outpatient (CLI) | payer MEDICAID, SELFPAY ==
[2022-04-10 12:10] LABS: Basophils # 0.1 K/mm3 (0-0.2); Basophils % 1.2 % (0.1-2.0); Eosinophils # 0.4 K/mm3 (0.0-0.4); Eosinophils % 4.7 % (0.1-12.0); Hematocrit 42.2 % (42.0-52.0); Hemoglobin 13.9 g/dL (14.1-18.0); Lymphocytes # 2.5 K/mm3 (0.7-4.5); Lymphocytes % 34.5 % (10-50); Mean Corpuscular HGB Conc 32.9 g/dL (31.8-35.4); Mean Corpuscular Hemoglobin 31.1 pg (27.0-31.2); Mean Corpuscular Volume 94.5 fl (80-94); Mean Platelet Volume 7.8 fl (7.4-10.4); Monocytes # 0.4 K/mm3 (0.1-1.0); Monocytes % 5.9 % (1.7-9.3); Neutrophils # 3.9 K/mm3 (1.8-7.8); Neutrophils % 53.6 % (37.0-80.0); Platelet Count 381 K/mm3 (142-424); Red Blood Count 4.47 M/mm3 (4.60-6.20); Red Cell Distribution Width 12.3 % (11.5-17.5); White Blood Count 7.3 K/mm3 (4.8-10.8)
[2022-04-10 12:34] LABS: Chloride 101 mmol/L (98-107)
[2022-04-10 12:35] LABS: Potassium 4.3 mmoL/L (3.5-5.1); Sodium 140 mmol/L (136-145)
[2022-04-10 12:37] LABS: Alanine Aminotransferase 24 U/L (12-78); Aspartate Amino Transferase 23 U/L (17-59); Blood Urea Nitrogen 13 mg/dl (9-20); Estimated Glomerular Filt Rate 88 ml/min (>60); GFR (African American) 107 ML/MIN (>60)
[2022-04-10 12:38] LABS: Albumin Level 4.5 g/dl (3.5-5.0); Albumin/Globulin Ratio 1.8 (1.1-1.8); Alkaline Phosphatase 94 U/L (38-126); Anion Gap 12.3 mEq/L (5-15); Bilirubin,Total 0.5 mg/dl (0.2-1.3); Carbon Dioxide 31 mmol/L (22.0-30.0); Globulin 2.5 g/dL (1.3-3.2); Glucose 107 mg/dl (74-100)
== END ==
PROVIDERS: PCP Emergency Medicine; Visit Provider Orthopaedic Surgery
DX: Z01.818 Encounter for other preprocedural examination (principal); G56.02 Carpal tunnel syndrome, left upper limb
CPT/HCPCS: 36415; 80053; 85025

== ENCOUNTER 2022-04-14 06:07 | Day surgery (SDC) | payer MEDICAID, SELFPAY ==
[2022-04-12 16:57] VITALS: BMI 22.1
[2022-04-14] VITALS (10 sets, daily range): BP systolic 107–163; BP diastolic 64–84; PULSE 69–83; RESP 12–18; TEMP 36.1–43; O2SAT 99–100
--- NOTE | 2022-04-14 07:52 | EXP.ANES.CKL ---
[facility] Medical History History of degenerative disc disease History of sciatica Surgical History History of incision and drainage Family History Other No significant family history Social History Smoking Status: Current every day smoker second hand exposure: No alcohol intake: former substance use type: marijuana current occupational status: unemployed Travel in the last 8 weeks: None household members: significant other housing: house current occupational exposures/hazards: Yes caffeine: Yes [facility] Anesthesia Checklist Patient Identification Patient Identification: Verbal (Name & ) Structural Data Admitted From: Home Planned Operative Procedure/s: l endoscopic carpal tunnel release Consent for Planned Operative Procedure(s) Verified: Yes Additional verifications Anesthesia Reactions: No Hx Blood Transfusions: No Blood Transfusion Reaction: No Airway Assessment C-Spine Mobility Assessed: Yes TMJ Mobility Assessed: Yes Dentition: Good Dentition Neurological Assessment Level of Consciousness: Awake, Alert and Appropriate Anesthesia Plan Anesthesia Risk discussed: Yes Anesthesia Plan: Verified ASA Class: II Anesthesia Type: General
--- NOTE | 2022-04-14 08:17 | P.OP_ITS ---
Date of procedure: 04/14/22 Pre-op Diagnosis:: left carpal tunnel syndrome Post-op Diagnosis:: same Procedure performed:: [id number]: left endoscopic carpal tunnel release Surgeon:: Morgan Calzada JR, MD ENTERPRISE ARCHITECT:: Yanick Javed Anesthesia: GETA Estimated blood loss (mL): 2 Clinical Note:: 51-year-old male with EMG confirmed bilateral carpal tunnel syndrome, left more symptomatic than right. He had failed prior conservative measures and is interested in more durable intervention. I recommended left endoscopic carpal tunnel release. He was amenable with the plan. We discussed the risk and benefits of surgery. Risks included but were not limited to pain, bleeding, infection, damage to adjacent structures, need for further surgery, wound healing complications, loss of limb, . Patient expressed verbal consent and written consent was obtained for the above procedure. Operative findings:: Transverse carpal ligament release confirmed endoscopically. Operative note:: Patient was identified in preoperative holding. Operative site was marked in indelible ink. History, physical, consent were reviewed and updated. Patient was surrendered to the anesthesia team, taken to the operative suite, placed supine on a well-padded operative table. A nonsterile tourniquet placed on the proximal brachium. Anesthesia was induced. The operative extremity was prepped and draped in the usual sterile fashion. The operative team donned sterile gowns and gloves and a timeout was called. All in attendance agreed regarding the patient's identity, procedure, operative site. Weight-based dose of antibiotics was given prior to incision. I made a transverse incision at the proximal wrist crease proximal to the transverse carpal ligament. I bluntly dissected through skin and subcutaneous tissue with care taken to avoid injuring the palmaris longus. I transected the fascia, inserted a dilating probe deep to the transverse carpal ligament and noted its depth distal to the transverse carpal ligament. I then inserted a cannula and scope, visualize the fibers of the transverse carpal ligament. I took to the distal aspect of the transverse carpal ligament to confirm its location, then with a curved blade under endoscopic visualization, transected the fibers of the transverse carpal ligament and noted that they retracted medially and laterally. I removed the cannula, achieved hemostasis, closed with Monocryl, Prineo and Dermabond. Dressings were applied. Counts were correct x2. There were no apparent complications. I was present scrubbed for the entire case. Postoperatively, plan to leave dressing in place for 3 days, then remove all but Prineo. Okay to shower but do not soak wound at that point. Finger mobility, limit weightbearing to 10 pounds until follow-up in 2 weeks at which point I anticipate initiating physical therapy. Tourniquet time (min): 12 Condition: stable Disposition: PACU Specimens:: none Complications:: none
--- NOTE | 2022-04-14 08:17 | EXP.ANES.I ---
[facility] Anesthesia Record Part I Anesthesia Record I Intake, IV Amount: 1,200 Estimated blood loss (mL): 0 Urine output (mL): 0 Blood Pressure: 133/84 SaO2: 100 Pulse Rate: 73 Respiratory Rate: 12 Temperature: 97.1 F Patient is:: Drowsy and Stable Stable to PACU at:: 08:15
--- NOTE | 2022-04-14 08:47 | SUR.PHASEI ---
0844- detailed report given to hamilton de anda in the pacu. 0845- pt transported to post op by hamilton de anda with bed in lowest position, side rails up. All dressings CDI
[2022-04-17 08:40] VITALS: BP 107/69; PULSE 78; TEMP 36.1
--- NOTE | 2022-04-17 08:40 | EXP.ANES.II ---
[facility] Anesthesia Record Part II Anesthesia Record Part II Discharge Time: 08:45 Destination: Surgical Day Care (OP Surgery) PACU nurse assessment reviewed?: Yes Patient Condition:: Good Anesthesia Complications:: None Swallowing reflex intact?: Yes Cyanosis?: No Blood Pressure: 107/69 Pulse Rate: 78 Temperature: 97 F Mental Status: Alert & Oriented Pain level:: 0 Nausea and/or vomitting:: None Intake, IV Amount: 0
== END 2022-04-14 09:06 | disposition home or self-care (01) ==
PROVIDERS: PCP Emergency Medicine; Visit Provider Orthopaedic Surgery
PROC: (CPT 64721; principal; 2022-04-14 07:30)
DX: G56.02 Carpal tunnel syndrome, left upper limb (principal)
CPT/HCPCS: 64721; 96374; J2405

== ENCOUNTER → 2022-05-15 09:50 | Outpatient (CLI) | payer MEDICAID, SELFPAY ==
[2022-05-15 19:42] LABS: Amphetamine/Metha Screen,Urine Negative ng/ml (<1000); Barbiturates Screen,Urine Negative ng/ml (<200)
[2022-05-15 19:43] LABS: Benzodiazepines Screen,Urine Negative ng/ml (<200)
[2022-05-15 19:44] LABS: Cannabinoid Screen,Urine Positive ng/ml (<50); Cocaine Screen,Urine Negative ng/ml (<300)
[2022-05-15 19:45] LABS: Methadone Screen,Urine Negative ng/ml (<300)
[2022-05-15 19:46] LABS: Opiate Screen,Urine Negative ng/ml (<300)
[2022-05-15 19:47] LABS: Phencyclidine Screen,Urine Negative ng/ml (<25)
== END ==
PROVIDERS: PCP Emergency Medicine; Visit Provider Emergency Medicine
DX: Z79.899 Other long term (current) drug therapy (principal)
CPT/HCPCS: 80305

== ENCOUNTER → 2022-07-12 10:00 | Outpatient (CLI) | payer MEDICAID, SELFPAY ==
[2022-07-12 16:53] LABS: Amphetamine/Metha Screen,Urine Negative ng/ml (<1000); Barbiturates Screen,Urine Negative ng/ml (<200)
[2022-07-12 16:54] LABS: Benzodiazepines Screen,Urine Negative ng/ml (<200)
[2022-07-12 16:55] LABS: Cannabinoid Screen,Urine Positive ng/ml (<50); Cocaine Screen,Urine Negative ng/ml (<300)
[2022-07-12 16:56] LABS: Methadone Screen,Urine Negative ng/ml (<300)
[2022-07-12 16:57] LABS: Opiate Screen,Urine Negative ng/ml (<300)
[2022-07-12 16:58] LABS: Phencyclidine Screen,Urine Negative ng/ml (<25)
== END ==
PROVIDERS: PCP Emergency Medicine; Visit Provider Emergency Medicine
DX: Z79.899 Other long term (current) drug therapy (principal)
CPT/HCPCS: 80305

== ENCOUNTER → 2022-09-05 10:50 | Outpatient (CLI) | payer MEDICAID, SELFPAY ==
[2022-09-05 14:52] LABS: Amphetamine/Metha Screen,Urine Negative ng/ml (<1000); Barbiturates Screen,Urine Negative ng/ml (<200)
[2022-09-05 14:53] LABS: Benzodiazepines Screen,Urine Negative ng/ml (<200)
[2022-09-05 14:54] LABS: Cannabinoid Screen,Urine Positive ng/ml (<50); Methadone Screen,Urine Negative ng/ml (<300)
[2022-09-05 14:55] LABS: Cocaine Screen,Urine Negative ng/ml (<300)
[2022-09-05 14:56] LABS: Opiate Screen,Urine Negative ng/ml (<300); Phencyclidine Screen,Urine Negative ng/ml (<25)
== END ==
PROVIDERS: PCP Emergency Medicine; Visit Provider Emergency Medicine
DX: Z79.899 Other long term (current) drug therapy (principal)
CPT/HCPCS: 80305

== ENCOUNTER → 2022-10-31 10:10 | Outpatient (CLI) | payer MEDICAID, SELFPAY ==
[2022-10-31 16:15] LABS: Amphetamine/Metha Screen,Urine Negative ng/ml (<1000); Barbiturates Screen,Urine Negative ng/ml (<200)
[2022-10-31 16:16] LABS: Benzodiazepines Screen,Urine Negative ng/ml (<200)
[2022-10-31 16:17] LABS: Cannabinoid Screen,Urine Positive ng/ml (<50); Cocaine Screen,Urine Negative ng/ml (<300)
[2022-10-31 16:18] LABS: Methadone Screen,Urine Negative ng/ml (<300); Opiate Screen,Urine Positive ng/ml (<300)
[2022-10-31 16:21] LABS: Phencyclidine Screen,Urine Negative ng/ml (<25)
== END ==
LOC: LAB.DROPOF 13:50
PROVIDERS: PCP Emergency Medicine; Visit Provider Emergency Medicine
DX: Z79.899 Other long term (current) drug therapy (principal)
CPT/HCPCS: 80305

== ENCOUNTER → 2022-12-29 10:10 | Outpatient (CLI) | payer MEDICAID, SELFPAY ==
[2022-12-29 19:36] LABS: Phencyclidine Screen,Urine Negative ng/ml (<25)
[2022-12-29 19:43] LABS: Amphetamine/Metha Screen,Urine Negative ng/ml (<1000)
[2022-12-29 19:44] LABS: Barbiturates Screen,Urine Negative ng/ml (<200)
[2022-12-29 19:45] LABS: Benzodiazepines Screen,Urine Negative ng/ml (<200); Cannabinoid Screen,Urine Positive ng/ml (<50)
[2022-12-29 19:47] LABS: Methadone Screen,Urine Negative ng/ml (<300); Opiate Screen,Urine Positive ng/ml (<300)
[2022-12-29 19:48] LABS: Cocaine Screen,Urine Negative ng/ml (<300)
== END ==
PROVIDERS: PCP Emergency Medicine; Visit Provider Emergency Medicine
DX: Z79.899 Other long term (current) drug therapy (principal)
CPT/HCPCS: 80305

== ENCOUNTER → 2023-02-14 23:45 | Outpatient (CLI) | payer MEDICAID, SELFPAY ==
[2023-02-14 20:23] LABS: Opiate Screen,Urine Negative ng/ml (<300)
[2023-02-14 22:16] LABS: Cocaine Screen,Urine Negative ng/ml (<300)
[2023-02-14 22:17] LABS: Benzodiazepines Screen,Urine Negative ng/ml (<200); Methadone Screen,Urine Negative ng/ml (<300)
[2023-02-14 22:28] LABS: Amphetamine/Metha Screen,Urine Negative ng/ml (<1000)
[2023-02-14 22:29] LABS: Barbiturates Screen,Urine Negative ng/ml (<200); Cannabinoid Screen,Urine Positive ng/ml (<50)
[2023-02-14 22:30] LABS: Phencyclidine Screen,Urine Negative ng/ml (<25)
== END ==
PROVIDERS: PCP Emergency Medicine; Visit Provider Emergency Medicine
DX: Z79.899 Other long term (current) drug therapy (principal)
CPT/HCPCS: 80305

== ENCOUNTER → 2023-02-27 16:10 | Outpatient (CLI) | payer MEDICAID, SELFPAY ==
[2023-02-27 13:01] LABS: Barbiturates Screen,Urine Negative ng/ml (<200)
[2023-02-27 13:03] LABS: Amphetamine/Metha Screen,Urine Negative ng/ml (<1000); Cocaine Screen,Urine Negative ng/ml (<300)
[2023-02-27 13:04] LABS: Benzodiazepines Screen,Urine Negative ng/ml (<200); Cannabinoid Screen,Urine Positive ng/ml (<50)
[2023-02-27 13:07] LABS: Phencyclidine Screen,Urine Negative ng/ml (<25)
[2023-02-27 13:08] LABS: Methadone Screen,Urine Negative ng/ml (<300)
[2023-02-27 13:09] LABS: Opiate Screen,Urine Negative ng/ml (<300)
== END ==
PROVIDERS: PCP Emergency Medicine; Visit Provider Emergency Medicine
DX: Z79.899 Other long term (current) drug therapy (principal)
CPT/HCPCS: 80305

== ENCOUNTER → 2023-03-14 10:09 | Outpatient (POV) | payer MEDICAID, SELFPAY ==
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
[2023-03-14 12:07] VITALS: BP 133/89; PULSE 90; RESP 18; O2SAT 100; BMI 22.3
== END ==
PROVIDERS: PCP Emergency Medicine; Visit Provider Nurse Practitioner Family
DX: M54.50 Low back pain, unspecified (principal); G89.29 Other chronic pain; M47.22 Other spondylosis with radiculopathy, cervical region; M50.10 Cervical disc disorder with radiculopathy, unspecified cervical region; G89.4 Chronic pain syndrome
CPT/HCPCS: 99202; G0463

== ENCOUNTER → 2023-04-26 09:31 | Outpatient (POV) | payer MEDICAID, SELFPAY | PROVIDERS: PCP Emergency Medicine; Visit Provider Nurse Practitioner Family | DX: Z53.9 Procedure and treatment not carried out, unspecified reason (principal) ==

== ENCOUNTER → 2023-04-27 15:49 | Outpatient (CLI) | payer MEDICAID, SELFPAY ==
[2023-04-27 15:13] LABS: Amphetamine/Metha Screen,Urine Negative ng/ml (<1000); Barbiturates Screen,Urine Negative ng/ml (<200)
[2023-04-27 15:14] LABS: Benzodiazepines Screen,Urine Negative ng/ml (<200)
[2023-04-27 15:15] LABS: Cannabinoid Screen,Urine Positive ng/ml (<50); Cocaine Screen,Urine Negative ng/ml (<300)
[2023-04-27 15:16] LABS: Methadone Screen,Urine Negative ng/ml (<300)
[2023-04-27 15:17] LABS: Opiate Screen,Urine Positive ng/ml (<300); Phencyclidine Screen,Urine Negative ng/ml (<25)
[2023-04-27 15:52] LABS: Basophils # 0.1 K/mm3 (0-0.2); Basophils % 0.7 % (0.1-2.0); Eosinophils # 0.3 K/mm3 (0.0-0.4); Eosinophils % 3.7 % (0.1-12.0); Hematocrit 41.2 % (42.0-52.0); Hemoglobin 13.8 g/dL (14.1-18.0); Lymphocytes # 2.8 K/mm3 (0.7-4.5); Lymphocytes % 38.2 % (10-50); Mean Corpuscular HGB Conc 33.5 g/dL (31.8-35.4); Mean Corpuscular Hemoglobin 31.6 pg (27.0-31.2); Mean Corpuscular Volume 94.3 fl (80-94); Mean Platelet Volume 8.4 fl (7.4-10.4); Monocytes # 0.5 K/mm3 (0.1-1.0); Monocytes % 7.4 % (1.7-9.3); Neutrophils # 3.6 K/mm3 (1.8-7.8); Platelet Count 311 K/mm3 (142-424); Red Blood Count 4.37 M/mm3 (4.60-6.20); Red Cell Distribution Width 12.6 % (11.5-17.5); White Blood Count 7.2 K/mm3 (4.8-10.8)
[2023-04-27 15:58] LABS: Alanine Aminotransferase 14 U/L (12-78); Albumin Level 4.7 g/dl (3.5-5.0); Albumin/Globulin Ratio 1.7 (1.1-1.8); Alkaline Phosphatase 91 U/L (38-126); Anion Gap 15.5 mEq/L (5-15); Aspartate Amino Transferase 27 U/L (17-59); Bilirubin,Total 0.4 mg/dl (0.2-1.3); Blood Urea Nitrogen 19 mg/dl (9-20); Calcium 9.4 mg/dl (8.4-10.2); Carbon Dioxide 26 mmol/L (22.0-30.0); Chloride 102 mmol/L (98-107); Chol/HDL Ratio 3.7 (1-3.5); Cholesterol 161 mg/dl (140-200); Estimated Glomerular Filt Rate 78 ml/min (>60); GFR (African American) 94 ML/MIN (>60); Globulin 2.8 g/dL (1.3-3.2); Glucose 82 mg/dl (74-100); HDL Cholesterol 44 mg/dl (40-60); Potassium 4.5 mmoL/L (3.5-5.1); Sodium 139 mmol/L (136-145); Total Protein,Serum 7.5 g/dl (6.3-8.2); Triglycerides 110 mg/dl (30-150); VLDL Cholesterol 22 mg/dL (0-40)
[2023-04-27 16:10] LABS: Direct LDL Cholesterol 87.51 mg/dL (100-129)
[2023-04-27 16:17] LABS: 25-OH Vitamin D, Total 21.5 ng/mL (30-100); T4 (Thyroxine) 7.9 ug/dl (5.53-11.0)
[2023-04-27 16:31] LABS: Prostate Specific Ag Screen 0.7 ng/ml (0.0-4.0); Thyroid Stimulating Hormone 2.21 uIU/mL (0.465-4.68)
== END ==
PROVIDERS: PCP Emergency Medicine; Visit Provider Emergency Medicine
DX: Z79.899 Other long term (current) drug therapy (principal); R10.9 Unspecified abdominal pain; E55.9 Vitamin D deficiency, unspecified; Z68.24 Body mass index [BMI] 24.0-24.9, adult
CPT/HCPCS: 80053; 80061; 80305; 82306; 84436; 84443; 85025; G0103

== ENCOUNTER → 2023-06-20 23:14 | Outpatient (CLI) | payer MEDICAID, SELFPAY ==
[2023-06-20 17:54] LABS: Basophils % 0.7 % (0.1-2.0); Eosinophils # 0.1 K/mm3 (0.0-0.4); Hematocrit 41.6 % (42.0-52.0); Hemoglobin 13.7 g/dL (14.1-18.0); Lymphocytes # 2.1 K/mm3 (0.7-4.5); Lymphocytes % 32.1 % (10-50); Mean Corpuscular Hemoglobin 29.9 pg (27.0-31.2); Mean Corpuscular Volume 90.5 fl (80-94); Monocytes # 0.4 K/mm3 (0.1-1.0); Monocytes % 6.4 % (1.7-9.3); Neutrophils # 3.9 K/mm3 (1.8-7.8); Neutrophils % 58.9 % (37.0-80.0); Platelet Count 312 K/mm3 (142-424); Red Blood Count 4.59 M/mm3 (4.60-6.20); Red Cell Distribution Width 12.8 % (11.5-17.5); White Blood Count 6.7 K/mm3 (4.8-10.8)
[2023-06-20 18:16] LABS: Amphetamine/Metha Screen,Urine Negative ng/ml (<1000); Barbiturates Screen,Urine Negative ng/ml (<200)
[2023-06-20 18:18] LABS: Cocaine Screen,Urine Negative ng/ml (<300)
[2023-06-20 18:19] LABS: Methadone Screen,Urine Negative ng/ml (<300); Opiate Screen,Urine Negative ng/ml (<300)
[2023-06-20 18:21] LABS: Phencyclidine Screen,Urine Negative ng/ml (<25)
[2023-06-20 18:57] LABS: Vitamin B12 699 pg/mL (239-931)
[2023-06-20 19:00] LABS: Cannabinoid Screen,Urine Positive ng/ml (<50)
[2023-06-20 19:07] LABS: Benzodiazepines Screen,Urine Negative ng/ml (<200)
[2023-06-20 19:23] LABS: Iron 46 ug/dL (49-181)
[2023-06-20 19:32] LABS: Total Iron Binding Capacity 352 ug/dL (261-462)
[2023-06-20 19:59] LABS: Ferritin 155 ng/ml (17.9-464)
== END ==
LOC: LAB.DROPOF 23:14
PROVIDERS: PCP Internal Medicine; Visit Provider Internal Medicine
DX: R53.83 Other fatigue (principal); M54.50 Low back pain, unspecified; D64.9 Anemia, unspecified; Z79.899 Other long term (current) drug therapy
CPT/HCPCS: 80307; 82607; 82728; 83540; 83550; 85025

== ENCOUNTER 2023-07-17 11:57 | Outpatient (CLI) | payer MEDICAID, SELFPAY ==
[2023-07-17 12:16] LABS: Barbiturates Screen,Urine Negative ng/ml (<200); Benzodiazepines Screen,Urine Negative ng/ml (<200)
[2023-07-17 12:18] LABS: Cocaine Screen,Urine Negative ng/ml (<300); Methadone Screen,Urine Negative ng/ml (<300)
[2023-07-17 12:19] LABS: Opiate Screen,Urine Positive ng/ml (<300)
[2023-07-17 12:20] LABS: Phencyclidine Screen,Urine Negative ng/ml (<25)
[2023-07-17 12:37] LABS: Amphetamine/Metha Screen,Urine Negative ng/ml (<1000)
[2023-07-17 12:40] LABS: Cannabinoid Screen,Urine Positive ng/ml (<50)
[2023-07-21 15:56] LABS: Opiates Negative (Cutoff=100); Oxycodone (GC/MS) 1655 ng/mL (Cutoff=100); Oxymorphone (GC/MS) >3000 ng/mL (Cutoff=100)
== END 2023-07-17 23:59 ==
LOC: LAB.DROPOF 11:57
PROVIDERS: PCP Nurse Practitioner Family; Visit Provider Nurse Practitioner Family
DX: G89.4 Chronic pain syndrome (principal); Z79.899 Other long term (current) drug therapy
CPT/HCPCS: 80307; 80361; 80365; G0480

== ENCOUNTER 2023-10-11 09:00 | Outpatient (CLI) | payer MEDICARE, MEDICAID, SELFPAY ==
--- NOTE | 2023-10-11 09:00 | MR_ITS ---
FINAL REPORT CLINICAL HISTORY: back pain. BILATERAL LEG NUMBNESS. PAIN AND TINGLING IN LEFT LEG. COMPARISON: None FINDINGS: Multiplanar MR imaging of the lumbar spine was performed without contrast. On the sagittal T2-weighted images, there is extensive abnormal decreased signal throughout the lumbar discs. There is moderate loss of height from T12-L1 through L4-5, most evident at L4-5. The vertebral alignment is normal. T12-L1: Mild diffuse disc bulge. Mild bilateral neural foraminal narrowing. L1-2: Mild diffuse disc bulge. Mild bilateral neural foraminal narrowing. L2-3: Muac-it-hlejldlg diffuse disc bulge. Xxur-xz-ukcxkcux bilateral neural foraminal narrowing. L3-4: Moderate diffuse disc bulge. Mild spinal canal compromise. Moderate bilateral neural foraminal narrowing. L4-5: Yokt-lj-bbdykocr diffuse disc bulge. Kwnq-at-kmnlxhul bilateral neural foraminal narrowing. L5-S1: There is no significant canal stenosis or neural foraminal narrowing. IMPRESSION: Diffuse disc bulges most evident at L3-4 and L4-5 with bilateral neural foraminal compromise at these levels. No acute bony abnormality. Reviewed, Interpreted and Dictated by Mariusz Orellana MD Transcribed by Andra Ingram Authenticated and [facility]
== END 2023-10-11 23:59 | disposition home or self-care (01) ==
LOC: RAD 09:00
PROVIDERS: PCP Internal Medicine; Visit Provider Internal Medicine
DX: M54.50 Low back pain, unspecified; M54.9 Dorsalgia, unspecified; R20.0 Anesthesia of skin; R20.2 Paresthesia of skin
CPT/HCPCS: 72148; 76376

== ENCOUNTER 2023-11-01 15:42 | Outpatient (CLI) | payer MEDICARE, MEDICAID, SELFPAY ==
[2023-11-01 18:58] LABS: Basophils # 0.1 K/mm3 (0-0.2); Basophils % 0.8 % (0.1-2.0); Eosinophils # 0.1 K/mm3 (0.0-0.4); Eosinophils % 1.9 % (0.1-12.0); Hemoglobin 13.8 g/dL (14.1-18.0); Lymphocytes # 2.9 K/mm3 (0.7-4.5); Lymphocytes % 38.8 % (10-50); Mean Corpuscular HGB Conc 32.8 g/dL (31.8-35.4); Mean Corpuscular Hemoglobin 30.3 pg (27.0-31.2); Mean Corpuscular Volume 92.4 fl (80-94); Mean Platelet Volume 8.7 fl (7.4-10.4); Monocytes # 0.6 K/mm3 (0.1-1.0); Monocytes % 7.4 % (1.7-9.3); Neutrophils # 3.8 K/mm3 (1.8-7.8); Neutrophils % 51.2 % (37.0-80.0); Platelet Count 276 K/mm3 (142-424); Red Blood Count 4.55 M/mm3 (4.60-6.20); Red Cell Distribution Width 13.2 % (11.5-17.5); White Blood Count 7.4 K/mm3 (4.8-10.8)
[2023-11-03 18:06] LABS: Peripheral Smear Review Scanned Result
== END 2023-11-01 23:59 | disposition home or self-care (01) ==
LOC: LAB.DROPOF 11-02 15:42
PROVIDERS: PCP Internal Medicine; Visit Provider Internal Medicine
DX: D64.9 Anemia, unspecified (principal); R53.83 Other fatigue
CPT/HCPCS: 85025

== ENCOUNTER 2024-01-31 11:07 | Outpatient (CLI) | payer MEDICARE, MEDICAID, SELFPAY ==
[2024-01-31 19:26] LABS: Basophils # 0.1 K/mm3 (0-0.2); Basophils % 0.9 % (0.1-2.0); Eosinophils # 0.2 K/mm3 (0.0-0.4); Eosinophils % 3.1 % (0.1-12.0); Hematocrit 42.1 % (42.0-52.0); Hemoglobin 13.8 g/dL (14.1-18.0); Lymphocytes # 2.7 K/mm3 (0.7-4.5); Lymphocytes % 37.6 % (10-50); Mean Corpuscular HGB Conc 32.7 g/dL (31.8-35.4); Mean Corpuscular Hemoglobin 30.3 pg (27.0-31.2); Mean Corpuscular Volume 92.6 fl (80-94); Mean Platelet Volume 8.3 fl (7.4-10.4); Monocytes # 0.5 K/mm3 (0.1-1.0); Neutrophils # 3.7 K/mm3 (1.8-7.8); Neutrophils % 51.4 % (37.0-80.0); Platelet Count 296 K/mm3 (142-424); Red Blood Count 4.55 M/mm3 (4.60-6.20); Red Cell Distribution Width 12.9 % (11.5-17.5); White Blood Count 7.1 K/mm3 (4.8-10.8)
[2024-01-31 20:06] LABS: Anion Gap 13.6 mEq/L (5-15); Blood Urea Nitrogen 24 mg/dl (9-20); Calcium 9.3 mg/dl (8.4-10.2); Carbon Dioxide 23 mmol/L (22.0-30.0); Chloride 108 mmol/L (98-107); Erythrocyte Sedimentation Rate 16 mm/hr (0-20); Estimated Glomerular Filt Rate 69 ml/min (>60); GFR (African American) 84 ML/MIN (>60); Glucose 87 mg/dl (74-100); Potassium 4.6 mmoL/L (3.5-5.1); Sodium 140 mmol/L (136-145)
[2024-01-31 21:53] LABS: Thyroid Stimulating Hormone 1.39 uIU/mL (0.465-4.68)
== END 2024-01-31 23:59 | disposition home or self-care (01) ==
LOC: LAB.DROPOF 02-01 11:08
PROVIDERS: PCP Internal Medicine; Visit Provider Internal Medicine
DX: J02.9 Acute pharyngitis, unspecified (principal); R53.83 Other fatigue
CPT/HCPCS: 80048; 84443; 85025; 85651

== ENCOUNTER 2024-03-25 11:07 | Outpatient (CLI) | payer MEDICARE, MEDICAID, SELFPAY ==
[2024-03-25 11:01] LABS: Basophils # 0.1 K/mm3 (0-0.2); Eosinophils # 0.1 K/mm3 (0.0-0.4); Eosinophils % 0.8 % (0.1-12.0); Hematocrit 41.6 % (42.0-52.0); Hemoglobin 13.4 g/dL (14.1-18.0); Lymphocytes # 2.1 K/mm3 (0.7-4.5); Lymphocytes % 31.9 % (10-50); Mean Corpuscular HGB Conc 32.3 g/dL (31.8-35.4); Mean Corpuscular Hemoglobin 30.5 pg (27.0-31.2); Mean Corpuscular Volume 94.3 fl (80-94); Mean Platelet Volume 7.7 fl (7.4-10.4); Monocytes # 0.5 K/mm3 (0.1-1.0); Neutrophils # 3.9 K/mm3 (1.8-7.8); Neutrophils % 59.3 % (37.0-80.0); Platelet Count 288 K/mm3 (142-424); Red Cell Distribution Width 13.1 % (11.5-17.5); White Blood Count 6.6 K/mm3 (4.8-10.8)
[2024-03-25 11:03] LABS: Albumin Level 4.5 g/dl (3.5-5.0); Chloride 101 mmol/L (98-107); Potassium 4.4 mmoL/L (3.5-5.1); Sodium 138 mmol/L (136-145)
[2024-03-25 11:06] LABS: Alanine Aminotransferase 17 U/L (12-78); Albumin/Globulin Ratio 1.7 (1.1-1.8); Alkaline Phosphatase 92 U/L (38-126); Anion Gap 13.4 mEq/L (5-15); Aspartate Amino Transferase 24 U/L (17-59); Bilirubin,Total 0.6 mg/dl (0.2-1.3); Blood Urea Nitrogen 19 mg/dl (9-20); Calcium 9.6 mg/dl (8.4-10.2); Carbon Dioxide 28 mmol/L (22.0-30.0); Estimated Glomerular Filt Rate 69 ml/min (>60); GFR (African American) 84 ML/MIN (>60); Globulin 2.6 g/dL (1.3-3.2); Glucose 94 mg/dl (74-100); Total Protein,Serum 7.1 g/dl (6.3-8.2)
[2024-03-25 11:12] LABS: Hemoglobin A1C 5.3 % (4.0-6.0)
[2024-03-25 11:45] LABS: Erythrocyte Sedimentation Rate 12 mm/hr (0-20)
[2024-03-25 12:14] LABS: HIV (1&2) Antibody Rapid NONREACTIVE (NONREACTIVE)
[2024-03-26 11:15] LABS: HCV Ab Non Reactive (Non Reactive)
== END 2024-03-25 23:59 | disposition home or self-care (01) ==
LOC: LAB.DROPOF 11:07
PROVIDERS: PCP Internal Medicine; Visit Provider Internal Medicine
DX: D64.9 Anemia, unspecified (principal); J40 Bronchitis, not specified as acute or chronic; R53.83 Other fatigue; R11.0 Nausea; R63.4 Abnormal weight loss; Z11.59 Encounter for screening for other viral diseases; Z79.899 Other long term (current) drug therapy
CPT/HCPCS: 80053; 83036; 85025; 85651; 86140; 86803; 87389

== ENCOUNTER 2024-04-15 08:53 | Outpatient (CLI) | payer MEDICARE, MEDICAID, SELFPAY | END 2024-04-15 23:59 | disposition home or self-care (01) | LOC: RAD 08:54 | PROVIDERS: PCP Internal Medicine; Visit Provider Internal Medicine | DX: R55 Syncope and collapse (principal) ==

== ENCOUNTER 2024-04-18 15:36 | Outpatient (CLI) | payer MEDICARE, MEDICAID, SELFPAY ==
--- NOTE | 2024-04-18 15:36 | MR_ITS ---
PROCEDURE INFORMATION: Exam: MR Head Without and With Contrast Exam date and time: 04/18/2024 3:50 PM Age: 53 years old Clinical indication: Other: Syncope; Additional info: Syncope and blurred vision TECHNIQUE: Imaging protocol: Magnetic resonance imaging of the head without and with contrast. Contrast material: PROHANCE; Contrast volume: 17 ml; Contrast route: IV; COMPARISON: MR CERVICAL SPINE WO CON 09/22/2021 2:57 PM FINDINGS: Brain: Few tiny right frontal lobe subcortical white matter hyperintensities are identified. There is no evidence of acute parenchymal hemorrhage, extra-axial collection, or acute infarction. There is no mass effect, midline shift, or downward herniation. There is no significant white matter disease. There is no pathologic enhancement. Cerebral ventricles: Normal. No ventriculomegaly. Bones: Unremarkable. Paranasal sinuses: There is mild to moderate ethmoid sinus disease. Mastoid air cells: Normal as visualized. No mastoid effusion. Orbital cavities: Unremarkable. Soft tissues: Unremarkable. IMPRESSION: Few tiny right frontal lobe white matter hyperintensities which are nonspecific. Otherwise unremarkable appearance of the brain.
[2024-04-18] MEDS: GADOTERIDOL INJ 20ML SYRINGE 17 ML IV (16:24)
[2024-04-18] MEDS: SODIUM CHLORIDE 0.9% 10ML SYR (RAD ONLY) 10 ML IV (16:24)
== END 2024-04-18 23:59 | disposition home or self-care (01) ==
LOC: RAD 15:36
PROVIDERS: PCP Internal Medicine; Visit Provider Internal Medicine
DX: R55 Syncope and collapse (principal)
CPT/HCPCS: 70553; A9576

== ENCOUNTER 2024-04-24 09:50 | Outpatient (CLI) | payer MEDICARE, MEDICAID, SELFPAY ==
[2024-04-24 20:43] LABS: 25-OH Vitamin D, Total 24.5 ng/mL (30-100)
== END 2024-04-24 23:59 | disposition home or self-care (01) ==
LOC: LAB.DROPOF 04-25 09:31
PROVIDERS: PCP Internal Medicine; Visit Provider Internal Medicine
DX: E55.9 Vitamin D deficiency, unspecified (principal)
CPT/HCPCS: 82306

== ENCOUNTER 2024-08-27 09:47 | Outpatient (CLI) | payer MEDICARE, MEDICAID, SELFPAY ==
[2024-08-27 21:45] LABS: Basophils # 0.1 K/mm3 (0-0.2); Basophils % 1.4 % (0.1-2.0); Eosinophils # 0.3 K/mm3 (0.0-0.4); Eosinophils % 4.6 % (0.1-12.0); Hematocrit 39.3 % (42.0-52.0); Hemoglobin 12.5 g/dL (14.1-18.0); Lymphocytes # 2.2 K/mm3 (0.7-4.5); Lymphocytes % 37.9 % (10-50); Mean Corpuscular HGB Conc 31.8 g/dL (31.8-35.4); Mean Corpuscular Hemoglobin 28.9 pg (27.0-31.2); Mean Corpuscular Volume 90.8 fl (80-94); Mean Platelet Volume 10.1 fl (7.4-10.4); Monocytes # 0.6 K/mm3 (0.1-1.0); Neutrophils # 2.6 K/mm3 (1.8-7.8); Neutrophils % 45.9 % (37.0-80.0); Platelet Count 305 K/mm3 (142-424); Red Blood Count 4.33 M/mm3 (4.60-6.20); Red Cell Distribution Width 12.5 % (11.5-17.5); White Blood Count 5.7 K/mm3 (4.8-10.8)
[2024-08-27 22:21] LABS: Microalbumin/Creatinine Ratio 8.2
[2024-08-27 22:23] LABS: Creatinine,Urine Random 141 mg/dL (Not Estab.)
[2024-08-27 23:00] LABS: Chol/HDL Ratio 3.4 (1-3.5); Cholesterol 128 mg/dl (140-200); HDL Cholesterol 38 mg/dl (40-60); Triglycerides 68 mg/dl (30-150); VLDL Cholesterol 14 mg/dL (0-40)
[2024-08-27 23:11] LABS: C-Reactive Protein 10.3 mg/L (0-4); Direct LDL Cholesterol 69.93 mg/dL (100-129)
[2024-08-27 23:21] LABS: 25-OH Vitamin D, Total 16.5 ng/mL (30-100)
[2024-08-27 23:34] LABS: Prostate Specific Ag Screen 0.6 ng/ml (0.0-4.0)
== END 2024-08-27 23:59 | disposition home or self-care (01) ==
LOC: LAB.DROPOF 08-28 10:42
PROVIDERS: PCP Internal Medicine; Visit Provider Internal Medicine
DX: Z12.5 Encounter for screening for malignant neoplasm of prostate (principal); D64.9 Anemia, unspecified; J44.9 Chronic obstructive pulmonary disease, unspecified; F41.1 Generalized anxiety disorder; E55.9 Vitamin D deficiency, unspecified; I10 Essential (primary) hypertension
CPT/HCPCS: 80061; 82043; 82306; 82570; 85025; 86140; G0103

== ENCOUNTER 2024-12-11 16:37 | Outpatient (CLI) | payer MEDICARE, MEDICAID, SELFPAY ==
--- NOTE | 2024-12-11 16:15 | MR_ITS ---
PROCEDURE INFORMATION: Exam: MR Cervical Spine Without Contrast Exam date and time: 12/11/2024 4:38 PM Age: 54 years old Clinical indication: Left sided neck pain into shoulder; Additional info: Cervical degeneration TECHNIQUE: Imaging protocol: Magnetic resonance imaging of the cervical spine without contrast. COMPARISON: MR CERVICAL SPINE WO CON 09/22/2021 2:57 PM FINDINGS: Bones/joints: Unremarkable. No fracture. Normal alignment. Spinal cord: Normal signal. No cord compression. C2-C3: No significant disc bulge or herniation. No severe spinal canal stenosis. No significant neural foraminal narrowing. C3-C4: C3-C4, there is right eccentric disc bulge producing moderate narrowing of the right lateral recess. C4-C5: At C4-C5, there is mild right eccentric disc bulge producing mild narrowing of the right lateral recess. C5-C6: At C5-C6, there is mild diffuse disc bulge producing mild central canal stenosis and mild narrowing of the lateral recesses. C6-C7: At C6-C7, there is disc space narrowing with diffuse disc bulge producing severe narrowing of the lateral recesses. C7-T1: No significant disc bulge or herniation. No severe spinal canal stenosis. No significant neural foraminal narrowing. Soft tissues: Unremarkable. Vasculature: Expected flow voids in the vertebral arteries. IMPRESSION: Kmpe-jj-kszcpgva multilevel disc bulge and spinal stenosis as described. Overall, findings appear mildly worsened compared to the prior study of 2019. No intrinsic cord abnormality
--- OUTSIDE RECORDS SUMMARY | 2024-12-11 16:40 | XMS_ITS | Encounter Summary ---
Author Organization [facility] Address [address] [place], [place] [id number] Care Team Providers Care Instrument Assembly Supervisor Name Role Phone Jomar Zelaya MD Primary Care Provider + [phone] Mark Anthony Reyes MD Primary Care Provider + [phone] ClayMicaela COMPUTER DESIGNER Unavailable [phone] Reason for Referral * Consultation (Routine) - Closed Specialty Diagnoses / Procedures Referred By Contac t Referred To Contact Neurosurgery Diagnoses Degeneration, intervertebral disc, cervical Mark Anthony Reyes MD [address] [place] [address] Phone: tel: fax: Referral ID Status Reason Start Date Expiration Date V isits Requested Visits Authorized [id number] Closed Specialty Services Required 10/06/2021 04/07/2023 1 1 Encounter Details Date Type Department Care Team (Latest Contact Info) Description 10/06/2021 Community [facility] [address] [place] [phone] Mark Anthony Reyes MD [address] [place] [address] Degeneration, intervertebral disc, cervical (Primary Dx) Social History Tobacco Use Types Packs/Day Years Used Date Smoking Tobacco: Never Assessed Sex and Gender Information Value Date Recorded Sex Assigned at Not on file Legal Sex Male 6:53 PM EDT Gender Identity Not on file Sexual Orientation Not on file documented as of this encounter Plan of Treatment Scheduled Referrals Name Type Priority Associated Diagnoses Orde r Schedule Ambulatory Referral to Neurosurgery Outpatient Referral Routine Degeneration, intervertebral disc, cervical 1 Occurrences starting 10/06/2021 until 01/05/2022 documented as of this encounter Visit Diagnoses Diagnosis Degeneration, intervertebral disc, cervical- Primary Degeneration of cervical intervertebral disc documented in this encounter Care Teams Instrument Assembly Supervisor Relationship Specialty Start Date End Date Jomar Zelaya MD [address] [place] [address] PCP - General 11/05/20 11/03/21 Mark Anthony Reyes MD [address] [place] [address] PCP - General 11/04/21 Micaela Williamson APRN [address] [facility] [address] [place] [address] Nurse Practitioner Neurosurgery 11/04/21 documented as of this encounter
--- OUTSIDE RECORDS SUMMARY | 2024-12-11 16:40 | XMS_ITS | Clinical Summary ---
Author Organization Healthcare Address [facility] [place] [address] Care Team Providers Care Blasting Gang Miner Name Role Phone Mark Anthony Reyes MD Primary Care Provider [phone] Micaela Williamson GARMENT TAG STRINGER Unavailable [phone] Allergies No known active allergies Medications cephalexin (Keflex) 500 MG capsule 2 Active Flowflex COVID-19 Ag Home Test kit See administration instructions. 2 Active dicyclomine (Bentyl) 20 MG tablet TAKRE 1 TABLET BY MOUTH THREE TIMES DAILY NEEDED 1 Active gabapentin (Neurontin) 100 MG capsule Take 100 mg by mouth 3 (three) times a day. 2 Active mupirocin (Bactroban) 2 % ointment 2 Active ondansetron (Zofran) 4 MG tablet TAKE 1 TABLET BY MOUTH EVERY 8 HOURS NEEDED FOR NAUSEA AND VOMITING 1 Active promethazine (Phenergan) 25 MG tablet TAKE 1 TABLET BY MOUTH EVERY 6 HOURS NEEDED FOR NAUSEA AND VOMITING 1 Active sulfamethoxazo le-trimethopri m (Bactrim DS) 800-160 MG tablet 2 Active Social History Tobacco Use Types Packs/Day Years Used Date Smoking Tobacco: Never Assessed Smokeless Tobacco: Never Alcohol Use Standard Drinks/Week Comments Never 0 (1 standard drink = 0.6 oz pur e alcohol) Sex and Gender Information Value Date Recorded Sex Assigned at Not on file Legal Sex Male 6:53 PM EDT Gender Identity Not on file Sexual Orientation Not on file Last Filed Vital Signs Vital Sign Reading Time Taken Comments Blood Pressure 110/90 11/04/2021 9:38 AM EDT Pulse - - Temperature - - Respiratory Rate - - Oxygen Saturation - - Inhaled Oxygen Concentration - - Weight 77.1 kg (170 lb) 11/04/2021 9:38 AM EDT Height 188 cm (6' 2 ) 11/04/2021 9:38 AM EDT Body Mass Index 21.83 11/04/2021 9:38 AM EDT Plan of Treatment Health Maintenance Due Date Last Done Comments [facility]-Depression Screening 1968 [facility]-Infant/Child/Adol SDOH Screenings 1968 [facility]- SDOH Screenings 1986 [facility]-Adult SDOH Screenings 1986 [facility]-DTaP,Tdap,and Td Vaccine s (1 - Tdap) 08/28/1987 [facility]-Hepatitis B Vaccines (1 of 3 - 19+ 3-dose series) 08/28/1987 CT Colonography 2013 Colonoscopy 2013 FIT-DNA 2013 FIT 2013 FOBT 2013 Sigmoidoscopy 2013 [facility]-Colorectal Cancer Screening 2013 [facility]-Pneumococcal Vaccine: 50 + Years (1 of 1 - PCV) 2018 [facility]-Zoster Vaccines (1 of 2) 2018 [id number] Vaccine (1 - 20 24-25 season) 2024 [facility]-Influenza Vaccine ([place]as[place] n Ended) 2025 HPV Vaccines Aged Out No longer eligi ble based on patient's age to complete this topic [facility]-HIB Vaccines Aged Out No longer e ligible based on patient's age to complete this topic [facility]-Hepatitis A Vaccines Aged Out No longer eligible based on patient's age to complete this topic [facility]-IPV Vaccines Aged Out No longer e ligible based on patient's age to complete this topic [facility]-Rotavirus Vaccines Aged Out No lo nger eligible based on patient's age to complete this topic Insurance [employer] MEDICAID Care Teams Blasting Gang Miner Relationship Specialty Start Date End Date Mark Antohny Reyes MD [address] [place] [address] PCP - General 11/04/21 Micaela Williamson APRN [id number] [place] [address] Nurse Practitioner Neurosurgery 11/04/21
== END 2024-12-11 23:59 | disposition home or self-care (01) ==
LOC: RAD 16:39
PROVIDERS: PCP Internal Medicine; Visit Provider Internal Medicine
DX: M50.11 Cervical disc disorder with radiculopathy, high cervical region (principal); M50.121 Cervical disc disorder at C4-C5 level with radiculopathy; M50.122 Cervical disc disorder at C5-C6 level with radiculopathy; M50.123 Cervical disc disorder at C6-C7 level with radiculopathy; M48.02 Spinal stenosis, cervical region; M47.22 Other spondylosis with radiculopathy, cervical region
CPT/HCPCS: 72141

== ENCOUNTER 2024-12-23 07:24 | Day surgery (SDC) | payer MEDICARE, MEDICAID, SELFPAY ==
--- NOTE | 2024-12-17 12:46 | SUR.PREOP ---
attempted to preop pt, no voicemail set up
[2024-12-22 15:02] VITALS: BMI 25.0
[2024-12-23 07:30] VITALS: BP 146/91; PULSE 81; RESP 18; TEMP 36.2; O2SAT 98; BMI 25.0
--- NOTE | 2024-12-23 07:42 | EXP.GEN.HP ---
HPI HPI HPI: This is a 54-year-old gentleman presents for colonoscopy. Colonoscopy in March 2020 was complicated by moderate bowel preparation and fairly severe spasticity. Posterior anal canal thickening with mild anal stenosis noted. A sessile serrated adenoma was excised from the right colon. Additional hyperplastic polyps were excised. Recommendations for 6-12-month repeat were made. [facility] Disclaimer: The information contained in this section may have been updated after the patient was seen, as this information can be updated by other users. Medical History Snoring Sleep-disordered breathing Encephalopathy Dizziness History of COPD History of anxiety History of sciatica History of degenerative disc disease Surgical History History of dental surgery History of incision and drainage Family History Other Cancer Coronary artery disease Diabetes Heart attack Hyperlipidemia Hypertension No significant family history Social History (Updated 12/22/24 @ 14:59 by Fatuma Tabor RN) Smoking Status: Never smoker second hand exposure: No alcohol intake: former year quit: 2004 substance use type: marijuana current occupational status: disabled Travel in the last 8 weeks?: None household members: none housing: house marital status: number of children: 4 current occupational exposures/hazards: Yes caffeine: Yes Have you lived/traveled outside US in past 30 days?: No Contact w/someone who lives/traveled outside US past 30 days?: No Exposure to someone with infectious disease in past 14 days?: No Do you have a fever (greater than 100.4 F or 38 C)?: No Have you tested positive for COVID-19?: No Exposed to someone with COVID-19 in past 14 days?: No Do you have a sore throat?: No Do you have a cough?: No Do you have any weakness?: No Do you have any diarrhea?: No Are you experiencing any unusual bleeding?: No Do you have any muscle aches/pain?: No Do you have any abdominal pain?: No Are you experiencing loss of taste or smell?: No Other Medical History Have you received the Flu Vaccine for this season: No Have you received the Pneumonia Vaccine: No Review of Systems Review of Systems Review of systems:: pertinent systems reviewed and negative unless documented below Meds Home Medications and Allergies Home Medications ?Medication ?Instructions ?Recorded ?Confirmed ?Type buspirone 15 mg tablet 15 mg PO TID #90 tabs 06/12/24 12/22/24 Rx cholecalciferol (vitamin D3) 250 250 mcg PO DAILY #90 caps 08/28/24 12/22/24 Rx mcg (10,000 unit) capsule gabapentin 600 mg tablet 600 mg PO TID Pain 30 days #90 tabs 11/11/24 12/22/24 Rx lorazepam 0.5 mg tablet 0.5 mg PO ONCE PRN anxiety #2 tabs 12/08/24 12/22/24 Rx oxycodone 10 mg tablet 10 mg PO QID PRN pain 30 days #120 12/12/24 12/22/24 Rx tabs New Prescriptions to Start Prescriptions: Allergies Allergy/AdvReac Type Severity Reaction Status Date / Time No Known Allergies Allergy Verified 12/23/24 07:30 Exam Data for Last 24 hours Vital signs and Labs for Last 24 Hours: Temp Pulse Resp BP Pulse Ox O2 Del Method 97.1 F L 81 18 146/91 H 98 Room Air 12/23/24 07:30 12/23/24 07:30 12/23/24 07:30 12/23/24 07:30 12/23/24 07:30 12/23/24 07:30 I & O for Last 24 hours: Intake & Output 12/20/24 12/21/24 12/22/24 12/23/24 11:59 11:59 11:59 11:59 Weight 195 lb Constitutional Constitutional: no acute distress *Routine HEENT Exam Head: Present normocephalic Eye: Present EOMI ENT: Present mucous membranes moist *Routine Neck Exam Neck: Present full ROM *Routine Respiratory Exam Respiratory: Absent respiratory distress *Routine Cardiovascular Exam Cardiovascular: Absent tachycardia *Routine Abdominal Exam Abdominal: Present soft *Routine Rectal Exam Rectal:: deferred *Routine Genitalia Exam Genitalia:: deferred *Routine Extremities Exam Extremities: Present full ROM *Routine Skin Exam Skin: Absent erythema *Routine Neurological Exam Neurological: Present alert Assessment and Plan *Assessment and plan (1) History of colon polyps: Status: Acute Category: Medical Code(s): Z86.0100 - Personal history of colon polyps, unspecified Plan: Colonoscopy today I have discussed the risks and benefits including, but not limited to: Bleeding Infection Damage to surrounding tissue Inherent risks of sedation The patient agrees to proceed.
[2024-12-23] MEDS: LACTATED RINGERS 1000ML 1,000 ML 50 ML IV (07:44)
--- NOTE | 2024-12-23 07:44 | HMH.SCOPE ---
Procedure: Date: 12/23/24 Patient Date of :: 1970 Procedure Performed:: Colonoscopy with polypectomy Indications:: History of colon polyps Note: Colonoscopy in March 2020 was complicated by moderate bowel preparation and fairly severe spasticity. Posterior anal canal thickening with mild anal stenosis noted. A sessile serrated adenoma was excised from the right colon. Additional hyperplastic polyps were excised. Recommendations for 6-12 month repeat were made. Performing Provider:: Meek Pal MD Referring Provider:: . Sedation:: Monitored anesthesia care Procedure:: After informed consent was obtained the patient was taken to the endoscopy suite. Sedation ensued after the patient was transferred to the left lateral decubitus position. Pulse, blood pressure, and oxygen saturation were monitored throughout the procedure. Digital rectal exam revealed no significant abnormality. The colonoscope was placed in position. The entire colon was evaluated. The colonoscope was carefully removed and the patient was transferred to recovery in stable condition. Please see findings and specimens below for detail. Findings:: Bowel preparation moderate to poor Fairly severe spasticity No significant anal stenosis or posterior scarring (improved versus prior) Polyps (see specimens) Specimens:: Small cecal polyp (cold biopsy forceps) Partially pedunculated/lobulated polyp at 40 cm (hot snare) Recommendations:: Timing of repeat colonoscopy is pending pathology buyt will likely be around 1 year with extended/alternate bowel preparation. Consider gastroenterology consultation secondary to limited bowel preparation on multiple occasions. If gastroenterology consultation completed, defer repeat colonoscopy to their service. Complications:: No immediate with the exception of limited bowel preparation Estimated blood obtained (mL): 1 Colonoscopy Component Colonoscopy Component Was a colonoscopy performed during today's procedure?: Yes Recommended follow up colonoscopy of at least 10 years?: No If no, follow up colonoscopy recommended in ___ years?: (See above) Reason for not recommending >/= 10 yr follow-up interval?: (See above)
--- NOTE | 2024-12-23 07:50 | P.PNANES_ITS ---
[facility] Disclaimer: The information contained in this section may have been updated after the patient was seen, as this information can be updated by other users. Medical History Snoring Sleep-disordered breathing Encephalopathy Dizziness History of COPD History of anxiety History of sciatica History of degenerative disc disease Surgical History History of dental surgery History of incision and drainage Family History Other Cancer Coronary artery disease Diabetes Heart attack Hyperlipidemia Hypertension No significant family history Social History Smoking Status: Never smoker second hand exposure: No alcohol intake: former year quit: 2004 substance use type: marijuana current occupational status: disabled Travel in the last 8 weeks?: None household members: none housing: house marital status: number of children: 4 current occupational exposures/hazards: Yes caffeine: Yes Have you lived/traveled outside US in past 30 days?: No Contact w/someone who lives/traveled outside US past 30 days?: No Exposure to someone with infectious disease in past 14 days?: No Do you have a fever (greater than 100.4 F or 38 C)?: No Have you tested positive for COVID-19?: No Exposed to someone with COVID-19 in past 14 days?: No Do you have a sore throat?: No Do you have a cough?: No Do you have any weakness?: No Do you have any diarrhea?: No Are you experiencing any unusual bleeding?: No Do you have any muscle aches/pain?: No Do you have any abdominal pain?: No Are you experiencing loss of taste or smell?: No [facility] Anesthesia Checklist Patient Identification Patient Identification: Arm Band and Verbal (Name & ) Structural Data Admitted From: Home Planned Operative Procedure/s: colonoscopy Consent for Planned Operative Procedure(s) Verified: Yes Verified Documents: Surgical Consent NPO Status Verified Time NPO: 00:00 Chart Verification Results Verified: ECG Additional verifications Anesthesia Reactions: No Hx Blood Transfusions: No Blood Transfusion Reaction: No Airway Assessment Mallampati Score:: Class II C-Spine Mobility Assessed: Yes TMJ Mobility Assessed: Yes Dentition: Good Dentition Neurological Assessment Level of Consciousness: Awake, Alert and Appropriate Hx Seizures: No Numbness or tingling in extremities: Yes (in upper extremities d/t neck pain, is getting evaluation for neck pain. ) Anesthesia Plan Anesthesia Risk discussed: Yes Anesthesia Plan: Verified ASA Class: II Anesthesia Type: MAC
[2024-12-23 08:50] VITALS: BP 93/53; PULSE 79; RESP 18; TEMP 36.1; O2SAT 98
[2024-12-23 09:00] VITALS: BP 107/66; PULSE 88; RESP 18; TEMP 36.1; O2SAT 100
[2024-12-23 09:09] VITALS: BP 113/71; PULSE 86; RESP 18; O2SAT 100
[2024-12-23 09:20] VITALS: BP 123/80; PULSE 81; RESP 18; O2SAT 100
== END 2024-12-23 09:20 | disposition home or self-care (01) ==
PROVIDERS: PCP Internal Medicine; Visit Provider Surgery
PROC: 0DJD8ZZ Inspection of Lower Intestinal Tract, Via Natural or Artificial Opening Endoscopic (ICD-10-PCS; CPT 45380; principal; 2024-12-23 08:30)
DX: D12.0 Benign neoplasm of cecum (principal); D12.6 Benign neoplasm of colon, unspecified; J44.9 Chronic obstructive pulmonary disease, unspecified; Z86.0100 Personal history of colon polyps, unspecified; Z79.899 Other long term (current) drug therapy
CPT/HCPCS: 45380; 45385; 88305; J2003; J2704; J7120

== ENCOUNTER 2025-02-24 09:22 | Outpatient (CLI) | payer MEDICARE, MEDICAID, SELFPAY ==
--- OUTSIDE RECORDS SUMMARY | 2025-02-25 11:13 | XMS_ITS | Encounter Summary ---
Author Organization [facility] Address [address] [place], [place] [address] Care Team Providers Care First Cook Name Role Phone Jomar Zelaya MD Primary Care Provider + [phone] Mark Anthony Reyes MD Primary Care Provider + [phone] ClayMicaela MARINE MACHINIST Unavailable [phone] Reason for Referral * Consultation (Routine) - Closed Specialty Diagnoses / Procedures Referred By Contac t Referred To Contact Neurosurgery Diagnoses Degeneration, intervertebral disc, cervical Mark Anthony Reyes MD [address] [place] [address] Phone: tel: fax: Referral ID Status Reason Start Date Expiration Date V isits Requested Visits Authorized [id number] Closed Specialty Services Required 10/06/2021 04/07/2023 1 1 Encounter Details Date Type Department Care Team (Latest Contact Info) Description 10/06/2021 Community [facility] [address] [place] [phone] Mark Anthony Reyes MD [address] [place] [address] Degeneration, intervertebral disc, cervical (Primary Dx) Social [...] disc documented in this encounter Care Teams First Cook Relationship Specialty Start Date End Date Jomar Zelaya MD [address] [place] [address] PCP - General 11/05/20 11/03/21 Mark Anthony Reyes MD [address] [place] [address] PCP - General 11/04/21 Micaela Williamson APRN [address] [facility] [address] [place] [address] Nurse Practitioner Neurosurgery 11/04/21 documented as of this encounter
--- OUTSIDE RECORDS SUMMARY | 2025-02-25 11:13 | XMS_ITS | Clinical Summary ---
Author Organization Healthcare Address [facility] [place] [place] [address] Care Team Providers Care Sales Department Manager Name Role Phone Mark Anthony Reyes MD Primary Care Provider [phone] Micaela Williamson HARDWARE INSTALLATION COORDINATOR Unavailable [phone] Allergies No known active allergies Medications cephalexin [...] Date Last Done Comments [facility]-Depression Screening 1968 [facility]-/Child/Adol SDOH Screenings 1968 [facility]- SDOH Screenings 1986 [...] 2018 [facility]-Zoster Vaccines (1 of 2) 2018 [id number] Vaccine (1 - 20 24-25 season) 2024 [facility]-Influenza Vaccine (#1) 2025 HPV Vaccines Aged Out No longer [...] patient's age to complete this topic Insurance [employer] MEDICAID Care Teams Sales Department Manager Relationship Specialty Start Date End Date Mark Anthony Reyes MD [address] [place] [address] PCP - General 11/04/21 Micaela Williamson APRN [address] [facility] [address] [place] [phone] Nurse Practitioner Neurosurgery 11/04/21
== END 2025-02-24 23:59 | disposition home or self-care (01) ==
LOC: LAB.DROPOF 02-25 10:51
PROVIDERS: PCP Internal Medicine; Visit Provider Internal Medicine
DX: R53.1 Weakness (principal); R53.83 Other fatigue; R68.82 Decreased libido
CPT/HCPCS: 84403

== ENCOUNTER 2025-03-19 09:54 | Outpatient (RCR) | payer MEDICARE, MEDICAID, SELFPAY ==
--- NOTE | 2025-03-19 12:02 | HMH.PTOPEV ---
PT Evaluation Rehab PT Outpatient Evaluation Start: 03/19/25 10:01 Freq: Status: Active Protocol: Document 03/19/25 10:01 [email or web address] (Rec: 03/19/25 12:01 [email or web address] [id number]) E-signed By Alexander Donohue, PT Outpatient Therapy Subjective History Subjective History Pt. is a 54 year old male who presents to [facility] in [place] for the PT outpatient initial evaluation this date(03/19/25 ) w/ c/o chronic and constant cervical and L-sided shldr. region P!, popping, and catching of traumatic onset 3 years ago that has progressively been getting worse in the last year. Three years ago pt. reports he was tossing a log into his wood stove when he felt a pop followed by immediate pain and edema in the L-sided shldr. region. Pt. reports waking up the next morning w/ a fist-size cyst over the L upper trap region. Pt. reports seeking medical attention where he had S/P I and D performed over L upper trap region for a carbuncle. Pt. reports ever since then he symptoms have progressively been getting worse. Pt. c/o constant P! over L-sided upper trap region. Pt. also c/o locking in the cervical spine when he looks down at his phone, and increased popping when he goes to look back up. Pt. reports looking level seems to help some, but also laying supine stating it feels like everything is leveling out. Pt. also reports some symptom relief w/ prescribed medicine. Pt. 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 Pt. reports history of numbness in the L UE hand and digits, but S/P CTS release seem to give symptom relief to the L UE hand. Pt. reports he doesn't notice numbness/tingling/pain that refers down the L UE, vocalizes pain is constant over the L-sided upper trap region w/ frequent popping and pressure in the C-spine. 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 Recent diagnostic imaging(MRI) C-spine indicates inflammation per pt. report. Pt. reports having an injection a couple years ago that provided some symptom relief. Pt. expresses hesitation w/ Physical Therapy secondary to vocalizing being reluctant to move d/t getting stuck in a position. Pt. RTMD 05/26/25. Current medications includes Gabapentin, Oxycodone, Aleve, Tylenol. PMH includes L-sided I and D carbuncle over upper trap region, S/P L UE hand CTS release, and family history of cancer(mother secondary to colon cancer). New diagnosis of No cancer in past 12 months? Chief Complaint Pain,Stiff,Clicks,Catches/Locks,Paresthesia,Weakness Symptom Type Ache,Sharp,Dull,Stabbing,Burning,Numbness Symptoms Relieved By Rest/Positioning,Ice,Prescription Meds Symptoms Aggravated Sitting,Physical Activity,Twisting,Walking,Lifting By Prior Functional None Limitations Current Functional Lifting,Desk Work/Reading,Driving,Sleeping,Standing, Limitations Sitting,Recreation Activity,Walking Symptom Description Constant but Variable,Activity Dependent Level of pain today 6 (0-10) Pain scale - at its 4 best (0-10) Pain scale - at its 8 worst (0-10) Cervical Eval Palpation Cervical Muscles L Cervical Paraspinal,L Suboccipital,L CT Junction,L Upper Trapezius Cervical/Thoracic Tenderness,Spasm,Trigger Point,Muscle Guarding Palpation Findings Posture Head/C-Spine Posture Flexed,C-Spine Flattened Sitting Position Head/C-Spine Posture Flexed,C-Spine Flattened Standing Position Flexibility Deficits Upper Trapezius (L) Severe Tightness Muscle Length Levaetor Scapulae (L) Severe Tightness Muscle Length Scalene Group Muscle (L) Severe Tightness Length Sternocleidomastoid (L) Severe Tightness Muscle Length Pectoralis Major (L) Severe Tightness Muscle Length Pectoralis Minor (L) Severe Tightness Muscle Length Passive Joint Mobility Cervical PIVM Dec: R C2/3 L C2/3 R C3/4 L C3/4 R C4/5 L C4/5 R C5/6 L C5/6 R C6/7 L C6/7 R C7/T1 L C7/T1 WNL: R OA L OA R AA L AA AROM Cervical Spine 20 Extension Active Range of Motion ( degrees) Cervical Spine 30 Flexion Active Range of Motion (degrees) Cervical Spine Right 18 Lateral Flexion Active Range of Motion (degrees) Cervical Spine Left 15 Lateral Flexion Active Range of Motion (degrees) Cervical Spine Right 44 Rotation Active Range of Motion ( degrees) Cervical Spine Left 34 Rotation Active Range of Motion ( degrees) MMT Bilateral Deltoid (C5) 3+ Fair+ Biceps Brachii 4+ Good+ Strength Grade Wrist Extension 4+ Good+ Strength Grade Triceps Brachii 4+ Good+ Strength Grade Wrist Flexion 3+ Fair+ Strength Grade Extensor Pollicis 4 Good Longus Strength Grade Finger Abduction 4 Good Strength Grade DTR Rt Biceps 2+ Lt Biceps 1+ Rt Brachioradialis 0 Lt Brachioradialis 0 Rt Triceps 1+ Lt Triceps 1+ Altered Sensation Right Comment pt. vocalized decreased light touch discrimination C7/ C8 to L UE Left Comment pt. vocalized decreased light touch discrimination C6 compared to R UE Special Test C-Spine Foraminal Negative Left,Negative Right Compression ( [place]) Test C-spine Verterbral Central P/A [place],Left P/A [place] Accessory Movements that Elicit Symptoms C-Spine Foraminal Positive Distraction Test C-Spine Compression Negative Left,Negative Right Test Neck Disability Index Neck Disability Index Section 1: Pain The pain is fairly severe at the moment Intensity Section 2: Personal It is painful to look after myself and I am slow and Care (washing, careful dressing, etc.) Section 3: Lifting Pain prevents me from lifting heavy weights, but I can manage light to Section 4: Reading I can hardly read at all because of severe pain in my neck Section 5: Headaches I have moderate headaches, which come frequently Section 6: I have a fair degree of difficulty in concentrating Concentration when I want to Section 7: Work I can hardly do any work at all Section 8: Driving I can drive my car as long as I want with moderate pain in my neck Section 9: Sleeping My sleep is greatly disturbed (3-5 hrs sleepless) Section 10: I can hardly do any recreation activities because of Recreation pain in my neck NDI Score 31 Outpatient Therapy Assessment Impairments Problems/ Palpation Tenderness,Impaired Range of Motion,Impaired Impairmments Strength,Impaired Walking,Impaired Standing,Impaired Sitting,Impaired Driving,Impaired Lifting,Impaired Recreational Activities,Impaired Work Activities, Impaired Desk/Computer Activities,Subjective C/O Pain, Impaired Self Care/Self Management Prognosis Rehab Potential Good Comment w/ HEP compliancy Clinical Impression Consistent with Yes Diagnosis Consistent with C-spine disc degeneration Additional details: spondylosis without myelopathy or radiculopathy, cervical region PT Patient Goals PT Patient Goals PT Short Term STG#1.) Pt. will demonstrate independency w/ initial Patient Goals HEP compliancy in 2 wks. for optimal prognosis w/ Physical Therapy. STG#2.) Pt. will exhibit grade 2 +TTP to L upper trap and central grade I P-A C4-C6 in 2 wks. for improved QOL. STG#3.) Pt. will subjectively vocalize comparable P! to a 5/10 @ worse in 2 wks. for improved QOL. PT Mcfp Patient LTG#1.) Pt. will demonstrate a 10 degree improvement in Goals cervical spine flexion ROM in 6-8 wks. to be able to look down at his phone w/o difficulty. LTG#2.) Pt. will demonstrate a 10 degree improvement in L-sided cervical rotation in 6-8 wks. to be able to check his blind spot when pulling out of his driveway. LTG#3.) Pt. will subjectively vocalize comparable P! a 3/10 at worse in 6-8 wks. for improved sleep. LTG#4.) Pt. will exhibit 4+/5 in L UE shldr. abd. in 6- 8 wks. to be able to use L UE to operate steering wheel . Outpatient Therapy Plan of Care Treatment Plan May Include Therapeutic Exercise Yes Including Home Exercise Program Manual Therapy Yes Techniques Neuromuscular Re- Yes education Therapeutic Yes Activities to Return to Previous Functional/Work Level ADL/Self Care Yes Education Mechanical Traction Yes Dry Needling Yes Thermal Modalities Yes Electrical Yes Stimulation Ultrasound/ Yes Phonophoresis Iontophoresis Yes Vasopneumatic Yes Compression Pump Massage Yes Eval/Re-Eval Yes Frequency Times per week 2 Duration Number of Weeks 6-8 Addendums This patient is a No candidate for social or vocational rehab ? Patient/Guardian Yes verbally acknowledges understanding of treatment program and consents to further treatment? Patient/Guardian Yes verbally acknowledges understanding of diagnosis, prognosis and goals for treatment? Eval Complexity PT Charges 55353 - Low Complexity Shoulder/Elbow Eval Shoulder Objective Measurements Elbow Objective Measurements PHYSICIAN CERTIFICATION: I certify the specified therapy services for Shiva Jin are required, authorized, and reviewed every 30 days.
== END 2025-03-19 23:59 | disposition home or self-care (01) ==
LOC: PT.CARL 09:54
PROVIDERS: Visit Provider Internal Medicine
DX: M47.812 Spondylosis without myelopathy or radiculopathy, cervical region (principal)
CPT/HCPCS: 97110; 97140; 97161

== ENCOUNTER 2025-04-07 13:00 | Outpatient (RCR) | payer MEDICARE, MEDICAID, SELFPAY | END 2025-04-07 23:59 | disposition home or self-care (01) | LOC: PT.CARL 13:00 | PROVIDERS: Visit Provider Internal Medicine | DX: M47.812 Spondylosis without myelopathy or radiculopathy, cervical region (principal); M50.30 Other cervical disc degeneration, unspecified cervical region | CPT/HCPCS: 97012; 97110; 97112 ==